=== PATIENT | male | born 1935 | race Caucasian/White ===

== ENCOUNTER → 2016-04-04 | Outpatient (REF) | payer MEDICARE, OTHER ==
[~2016-04-04] MED LIST: ACET50TAOT PO; CARV6.25 PO; CICL0.776 EX; CIPR500T89 PO; CUTI0.05 EX; DIGO0.25 PO; FINA5TAB2 PO; LEVA500T OR; LISI10TA4 PO; METO-207 PO; MOME50SP; PERC5TAB6 PO; TAMS0.4C2 PO; TYLENOL #3 OR; VERA27.5; XARE20TA PO; flecainide PO
[2016-04-04 17:35] LABS: ALBUMIN 3.5 GM/DL (3.2-5.2); ALBUMIN/GLOBULIN RATIO 1.13 (1.00-1.93); ALKALINE PHOSPHATASE 56 U/L (45-117); ALT/SGPT 23 U/L (12-78); ANION GAP 6 MEQ/L (8-16); AST/SGOT 17 U/L (15-37); BILIRUBIN,TOTAL 0.6 MG/DL (0.2-1.0); BLOOD UREA NITROGEN 19 MG/DL (7-18); CALCIUM LEVEL 8.5 MG/DL (8.8-10.2); CARBON DIOXIDE LEVEL 28 MEQ/L (21-32); CHLORIDE LEVEL 107 MEQ/L (98-107); CREATININE FOR GFR 0.88 MG/DL (0.70-1.30); GLOMERULAR FILTRATION RATE > 60.0 (>35); GLUCOSE, FASTING 89 MG/DL (83-110); POTASSIUM SERUM 4.6 MEQ/L (3.5-5.1); SODIUM LEVEL 141 MEQ/L (136-145); TOTAL PROTEIN 6.6 GM/DL (6.4-8.2)
[2016-04-04 17:46] LABS: MEAN CORPUSCULAR HEMOGLOBIN 30.6 pg (27.0-33.0); MEAN CORPUSCULAR HGB CONC 33.5 g/dl (32.0-36.5); MEAN CORPUSCULAR VOLUME 91.3 fl (80.0-96.0); RED CELL DISTRIBUTION WIDTH 13.7 % (11.5-14.5); WHITE BLOOD COUNT 6.2 K/mm3 (4.0-10.0)
== END ==
LOC: M SFHCCAPE 09:42
PROVIDERS: ATTEND Internal Medicine
DX: I48.0 Paroxysmal atrial fibrillation (principal); R03.0 Elevated blood-pressure reading, without diagnosis of hypertension

== ENCOUNTER → 2016-04-12 | Outpatient (CLI) | payer MEDICARE, OTHER ==
[~2016-04-12] VITALS: Ht 188 cm; Wt 101.2 kg
[~2016-04-12] MED LIST changes: +LIDOCAINE 2% INJ 100 MG/5 ML SDV (FOR ANES.) As Ordered ONE; +LR 1,000 ML IV SCH; +PROPOFOL 200 MG/20 ML VIAL As Ordered ONE
--- NOTE | 2016-04-12 08:21 | ROOR ---
Patient Name: Prem Malloy Procedure Date: 04/12/2016 7:34 AM Date of : 1935 Age: 80 Room: [facility] Gender: Male Note Status: Finalized Procedure: Colonoscopy Indications: High risk colon cancer surveillance: Personal history of non-advanced adenoma, Last colonoscopy: April 2010 Providers: Manuel Gamboa MD Referring MD: Gen Caldera MD Requesting Provider: Medicines: Monitored Anesthesia Care Complications: No immediate complications. Procedure: Pre-Anesthesia Assessment: - Prior to the procedure, a History and Physical was performed, and patient medications and allergies were reviewed. The patient is competent. The risks and benefits of the procedure and the sedation options and risks were discussed with the patient. All questions were answered and informed consent was obtained. Patient identification and proposed procedure were verified by the physician, the nurse and the anesthesiologist in the procedure room. Mental Status Examination: alert and oriented. Airway Examination: normal oropharyngeal airway and neck mobility. CV Examination: regular rate and rhythm. Prophylactic Antibiotics: The patient does not require prophylactic antibiotics. Prior Anticoagulants: The patient has taken Xarelto (rivaroxaban), last dose was 4 days prior to procedure. ASA Grade Assessment: II - A patient with mild systemic disease. After reviewing the risks and benefits, the patient was deemed in satisfactory condition to undergo the procedure. The anesthesia plan was to use monitored anesthesia care (MAC). Immediately prior to administration of medications, the patient was re-assessed for adequacy to receive sedatives. The heart rate, respiratory rate, oxygen saturations, blood pressure, adequacy of pulmonary ventilation, and response to care were monitored throughout the procedure. The physical status of the patient was re-assessed after the procedure. The Colonoscope was introduced through the anus and advanced to the cecum, identified by appendiceal orifice and ileocecal valve. The colonoscopy was performed without difficulty. The patient tolerated the procedure well. The quality of the bowel preparation was excellent. Findings: The perianal and digital rectal examinations were normal. Medium-mouthed diverticula were found in the entire colon. A 3 mm polyp was found in the cecum. The polyp was sessile. The polyp was removed with a jumbo cold forceps. Resection and retrieval were complete. A 3 mm polyp was found in the hepatic flexure. The polyp was sessile. The polyp was removed with a jumbo cold forceps. Resection and retrieval were complete. Impression: - Diverticulosis in the entire examined colon. - One 3 mm polyp in the cecum, removed with a jumbo cold forceps. Resected and retrieved. - One 3 mm polyp at the hepatic flexure, removed with a jumbo cold forceps. Resected and retrieved. Recommendation: - Await pathology results. - Telephone endoscopist for pathology results in 1 week. Manuel Gamboa MD 04/12/2016 8:21:37 AM Number of Addenda: 0 Note Initiated On: 04/12/2016 7:34 AM Estimated Blood Loss: Estimated blood loss was minimal.
[2016-04-12 08:38] VITALS: BP 138/64
== END ==
LOC: M OPP 06:54
PROVIDERS: ATTEND Surgery
DX: Z12.11 Encounter for screening for malignant neoplasm of colon (principal); Z86.010 Personal history of colon polyps; D12.0 Benign neoplasm of cecum; D12.3 Benign neoplasm of transverse colon; K57.30 Diverticulosis of large intestine without perforation or abscess without bleeding; I48.91 Unspecified atrial fibrillation; M19.90 Unspecified osteoarthritis, unspecified site; N40.0 Benign prostatic hyperplasia without lower urinary tract symptoms; Z95.0 Presence of cardiac pacemaker; Z87.891 Personal history of nicotine dependence; Z96.643 Presence of artificial hip joint, bilateral; Z79.02 Long term (current) use of antithrombotics/antiplatelets; Z79.899 Other long term (current) drug therapy

== ENCOUNTER → 2016-06-10 | Outpatient (REF) | payer MEDICARE, OTHER ==
[~2016-06-10] MED LIST changes: -LIDOCAINE 2% INJ 100 MG/5 ML SDV (FOR ANES.) As Ordered ONE; -LR 1,000 ML IV SCH; -PROPOFOL 200 MG/20 ML VIAL As Ordered ONE
[2016-06-10 18:19] LABS: ALBUMIN 3.6 GM/DL (3.2-5.2); ALBUMIN/GLOBULIN RATIO 1.13 (1.00-1.93); ALKALINE PHOSPHATASE 52 U/L (45-117); ALT/SGPT 28 U/L (12-78); ANION GAP 7 MEQ/L (8-16); AST/SGOT 18 U/L (15-37); BILIRUBIN,TOTAL 0.4 MG/DL (0.2-1.0); BLOOD UREA NITROGEN 21 MG/DL (7-18); CARBON DIOXIDE LEVEL 28 MEQ/L (21-32); CHLORIDE LEVEL 106 MEQ/L (98-107); CREATININE FOR GFR 0.85 MG/DL (0.70-1.30); FOLATE 7.8 NG/ML; GLOMERULAR FILTRATION RATE > 60.0 (>35); GLUCOSE, FASTING 83 MG/DL (83-110); POTASSIUM SERUM 4.3 MEQ/L (3.5-5.1); SODIUM LEVEL 141 MEQ/L (136-145); TOTAL PROTEIN 6.8 GM/DL (6.4-8.2); VITAMIN B12 LEVEL 227 PG/ML
== END ==
LOC: M SFHCPLAZ 16:25
PROVIDERS: ATTEND Internal Medicine
DX: R53.82 Chronic fatigue, unspecified (principal); F09 Unspecified mental disorder due to known physiological condition

== ENCOUNTER → 2016-07-08 | Outpatient (CLI) | payer MEDICARE, OTHER ==
[~2016-07-08] MED LIST changes: +ISOVUE-370 76% 100ML VIAL (Q9967) As Ordered ONE
--- NOTE | 2016-07-08 15:54 | REP ---
CT HEAD WITHOUT AND WITH CONTRAST: HISTORY: Cognitive dysfunction. CONTRAST: Isovue-370, 75 mL. COMPARISON: 02/17/2010. Areas of decreased attenuation are present in the basal ganglia. These represent old lacunar infarctions. Areas of decreased attenuation are present in the periventricular white matter. This represents small vessel ischemic disease. There is no intraparenchymal hemorrhage, mass or midline shift. There is no abnormal enhancement. The ventricular system and cortical sulci are dilated consistent with minimal volume loss. There is no extracerebral collection. The visualized sinuses are clear. IMPRESSION: 1. Old bilateral basal ganglia lacunar infarctions. 2. Small vessel ischemic disease. 3. Minimal volume loss. Signed by Ricardo Watson MD 07/08/2016 04:25 P
== END ==
LOC: M RAD 15:06
PROVIDERS: ATTEND Internal Medicine
DX: F09 Unspecified mental disorder due to known physiological condition (principal); I73.9 Peripheral vascular disease, unspecified; G93.9 Disorder of brain, unspecified
CPT/HCPCS: 70470; Q9967

== ENCOUNTER → 2017-05-29 | Outpatient (REF) | payer MEDICARE, OTHER ==
[2017-05-29 13:23] LABS: HEMATOCRIT 42.9 % (42.0-52.0); HEMOGLOBIN 14.2 g/dl (13.5-17.5); MEAN CORPUSCULAR HEMOGLOBIN 30.5 pg (27.0-33.0); MEAN CORPUSCULAR HGB CONC 33.1 g/dl (32.0-36.5); MEAN CORPUSCULAR VOLUME 92.1 fl (80.0-96.0); PLATELET COUNT, AUTOMATED 259 10^3/uL (150-450); RED BLOOD COUNT 4.66 10^6/uL (4.30-6.10); RED CELL DISTRIBUTION WIDTH 13.1 % (11.5-14.5); WHITE BLOOD COUNT 5.6 10^3/uL (4.0-10.0)
[2017-05-29 13:52] LABS: ALBUMIN 3.6 GM/DL (3.2-5.2); ALBUMIN/GLOBULIN RATIO 1.06 (1.00-1.93); ALKALINE PHOSPHATASE 50 U/L (45-117); ALT/SGPT 53 U/L (12-78); ANION GAP 6 MEQ/L (8-16); AST/SGOT 36 U/L (7-37); BILIRUBIN,TOTAL 0.6 MG/DL (0.2-1.0); BLOOD UREA NITROGEN 19 MG/DL (7-18); CALCIUM LEVEL 8.7 MG/DL (8.8-10.2); CARBON DIOXIDE LEVEL 26 MEQ/L (21-32); CHLORIDE LEVEL 110 MEQ/L (98-107); CHOLESTEROL LEVEL 171 MG/DL (<200); CHOLESTEROL RISK RATIO 4.621 (<5); CREATININE FOR GFR 0.93 MG/DL (0.70-1.30); GLOMERULAR FILTRATION RATE > 60.0 (>35); GLUCOSE, FASTING 95 MG/DL (70-100); HDL CHOLESTEROL 37 MG/DL (>40); LDL CHOLESTEROL 98.8 MG/DL (<100); NON-HDL-C 134 MG/DL; POTASSIUM SERUM 4.7 MEQ/L (3.5-5.1); SODIUM LEVEL 142 MEQ/L (136-145); TRIGLYCERIDES LEVEL 176 MG/DL (<150)
[2017-05-29 14:03] LABS: VITAMIN B12 LEVEL 591 PG/ML (247-911)
== END ==
LOC: M SFHCPLAZ 10:13
DX: Z51.81 Encounter for therapeutic drug level monitoring (principal); Z79.01 Long term (current) use of anticoagulants; R03.0 Elevated blood-pressure reading, without diagnosis of hypertension; E53.8 Deficiency of other specified B group vitamins; I10 Essential (primary) hypertension
CPT/HCPCS: 82607

== ENCOUNTER → 2017-10-23 | Outpatient (REF) | payer MEDICARE, OTHER ==
[2017-10-23 22:46] LABS: ALBUMIN 3.4 GM/DL (3.2-5.2); ANION GAP 10 MEQ/L (8-16); BLOOD UREA NITROGEN 21 MG/DL (7-18); CALCIUM LEVEL 8.7 MG/DL (8.8-10.2); CARBON DIOXIDE LEVEL 26 MEQ/L (21-32); CHLORIDE LEVEL 108 MEQ/L (98-107); CREATININE FOR GFR 1.17 MG/DL (0.70-1.30); GLOMERULAR FILTRATION RATE > 60.0 (>35); GLUCOSE, FASTING 89 MG/DL (70-100); MAGNESIUM LEVEL 2.2 MG/DL (1.8-2.4); PHOSPHORUS LEVEL 4.1 MG/DL (2.5-4.9); POTASSIUM SERUM 3.8 MEQ/L (3.5-5.1); SODIUM LEVEL 144 MEQ/L (136-145)
[2017-10-26 00:07] LABS: FLECAINIDE LEVEL 0.47 ug/mL (0.20-1.00)
== END ==
LOC: M LAB REF 17:45
DX: I48.0 Paroxysmal atrial fibrillation (principal); I50.30 Unspecified diastolic (congestive) heart failure; R94.31 Abnormal electrocardiogram [ECG] [EKG]; Z79.899 Other long term (current) drug therapy
CPT/HCPCS: 83735

== ENCOUNTER → 2017-11-22 | Outpatient (REF) | payer MEDICARE, OTHER ==
[2017-11-22 17:30] LABS: ALBUMIN 3.4 GM/DL (3.2-5.2); ALKALINE PHOSPHATASE 51 U/L (45-117); ALT/SGPT 24 U/L (12-78); ANION GAP 7 MEQ/L (8-16); AST/SGOT 16 U/L (7-37); BILIRUBIN,TOTAL 0.6 MG/DL (0.2-1.0); BLOOD UREA NITROGEN 21 MG/DL (7-18); CALCIUM LEVEL 8.2 MG/DL (8.8-10.2); CARBON DIOXIDE LEVEL 28 MEQ/L (21-32); CHLORIDE LEVEL 107 MEQ/L (98-107); CREATININE FOR GFR 1.18 MG/DL (0.70-1.30); GLOMERULAR FILTRATION RATE > 60.0 (>35); GLUCOSE, FASTING 68 MG/DL (70-100); MAGNESIUM LEVEL 2.1 MG/DL (1.8-2.4); POTASSIUM SERUM 4.2 MEQ/L (3.5-5.1); SODIUM LEVEL 142 MEQ/L (136-145); TOTAL PROTEIN 6.5 GM/DL (6.4-8.2)
== END ==
LOC: M SFHCCAPE 08:31
DX: R03.0 Elevated blood-pressure reading, without diagnosis of hypertension (principal); I48.0 Paroxysmal atrial fibrillation
CPT/HCPCS: 83735

== ENCOUNTER → 2017-11-22 | Outpatient (REF) | payer MEDICARE, OTHER ==
[2017-11-22 17:22] LABS: ALBUMIN 3.6 GM/DL (3.2-5.2); ANION GAP 7 MEQ/L (8-16); BLOOD UREA NITROGEN 24 MG/DL (7-18); CALCIUM LEVEL 8.5 MG/DL (8.8-10.2); CARBON DIOXIDE LEVEL 28 MEQ/L (21-32); CHLORIDE LEVEL 108 MEQ/L (98-107); CREATININE FOR GFR 1.17 MG/DL (0.70-1.30); GLOMERULAR FILTRATION RATE > 60.0 (>35); GLUCOSE, FASTING 72 MG/DL (70-100); PHOSPHORUS LEVEL 3.4 MG/DL (2.5-4.9); POTASSIUM SERUM 4.1 MEQ/L (3.5-5.1); SODIUM LEVEL 143 MEQ/L (136-145)
== END ==
LOC: M LABDRWCV 16:20
DX: I48.0 Paroxysmal atrial fibrillation (principal)
CPT/HCPCS: 80069; 83735

== ENCOUNTER 2018-03-11 10:47 | Emergency (ER) | payer MEDICARE, OTHER ==
[~2018-03-11] VITALS: Ht 188 cm; Wt 100.9 kg
[~2018-03-11 10:47] MED LIST changes: +ACET500T15 PO; -ACET50TAOT PO; +CIPR-249 PO; -CIPR500T89 PO; -ISOVUE-370 76% 100ML VIAL (Q9967) As Ordered ONE; -METO-207 PO; +METO1TAB7 PO; +PERC5TAB12 PO; -PERC5TAB6 PO
[2018-03-11] MEDS ORDERED: AMIO200T (10:56)
[2018-03-11] MEDS ORDERED: B-12100020 (10:56)
[2018-03-11] MEDS ORDERED: CARV3.12 (10:56)
[2018-03-11] MEDS ORDERED: DIGO0.12 (10:56)
[2018-03-11 11:26] LABS: BASO % 0.6 % (0.0-1.0); EOS # 0.1 10^3/uL (0.0-0.50); EOS % 1.6 % (0.0-3.0); HEMATOCRIT 44.3 % (42.0-52.0); HEMOGLOBIN 14.2 g/dl (13.5-17.5); LYMPH # 0.7 10^3/uL (1.5-4.5); MEAN CORPUSCULAR HEMOGLOBIN 30.5 pg (27.0-33.0); MEAN CORPUSCULAR HGB CONC 32.1 g/dl (32.0-36.5); MEAN CORPUSCULAR VOLUME 95.3 fl (80.0-96.0); MONO # 0.7 10^3/uL (0.0-0.8); MONO % 11.2 % (0.0-5.0); NEUTROPHILS # 4.7 10^3/uL (1.8-7.7); PLATELET COUNT, AUTOMATED 266 10^3/uL (150-450); RED BLOOD COUNT 4.65 10^6/uL (4.30-6.10); WHITE BLOOD COUNT 6.3 10^3/uL (4.0-10.0)
--- NOTE | 2018-03-11 11:45 | REP ---
Clinical: Chest pain . Comparison: 10/23/2015 . Findings: The mediastinum and cardiac silhouette are stable and within normal limits for portable technique. Dual lead pacemaker in satisfactory stable position. The lung huffman demonstrate chronic-appearing interstitial changes primarily involving the right hemithorax and left base. No focal consolidation, effusion, or pneumothorax. Skeletal structures are intact. Impression: Chronic-appearing changes as noted above. No acute cardiopulmonary process appreciated. Electronically Signed by Walt Kilgore MD 03/11/2018 11:36 A
[2018-03-11 12:19] LABS: CALCIUM LEVEL 8.6 MG/DL (8.8-10.2); CREATININE FOR GFR 1.52 MG/DL (0.70-1.30); DIGOXIN LEVEL 0.7 NG/ML (0.5-2.0); GLOMERULAR FILTRATION RATE 46.7 (>35); MB/CK RELATIVE INDEX 2.61 (< OR =4); POTASSIUM SERUM 4.1 MEQ/L (3.5-5.1); TROPONIN I 0.92 NG/ML (< 0.10)
[2018-03-11] MEDS ORDERED: NS 500 ML IV ONE (12:45)
[2018-03-11 14:28] LABS: MB/CK RELATIVE INDEX 2.64 (< OR =4); TROPONIN I 0.7 NG/ML (< 0.10)
[2018-03-11 15:19] VITALS: BP 136/62
--- NOTE | 2018-03-11 18:19 | ECGEPIP ---
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
== END 2018-03-11 15:20 | disposition home or self-care (01) ==
LOC: EDBD 10:47 → M ED 10:47
DX: R55 Syncope and collapse (principal); I48.91 Unspecified atrial fibrillation

== ENCOUNTER → 2018-05-28 | Outpatient (CLI) | payer MEDICARE, OTHER ==
[~2018-05-28] MED LIST changes: +AMIO200T; +B-12100020; +CARV3.12; +DIGO0.12
[2018-05-28 12:53] LABS: HEMATOCRIT 45.3 % (42.0-52.0); HEMOGLOBIN 14.6 g/dl (13.5-17.5); MEAN CORPUSCULAR HEMOGLOBIN 29.6 pg (27.0-33.0); MEAN CORPUSCULAR HGB CONC 32.2 g/dl (32.0-36.5); MEAN CORPUSCULAR VOLUME 91.9 fl (80.0-96.0); PLATELET COUNT, AUTOMATED 183 10^3/uL (150-450); RED BLOOD COUNT 4.93 10^6/uL (4.30-6.10); WHITE BLOOD COUNT 2.6 10^3/uL (4.0-10.0)
[2018-05-28 13:22] LABS: ALBUMIN 3.2 GM/DL (3.2-5.2); ALT/SGPT 360 U/L (12-78); BILIRUBIN,TOTAL 0.5 MG/DL (0.2-1.0); BLOOD UREA NITROGEN 18 MG/DL (7-18); CARBON DIOXIDE LEVEL 29 MEQ/L (21-32); CHLORIDE LEVEL 105 MEQ/L (98-107); CHOLESTEROL LEVEL 121 MG/DL (<200); CHOLESTEROL RISK RATIO 3.361 (<5); CREATININE FOR GFR 1.14 MG/DL (0.70-1.30); GLOMERULAR FILTRATION RATE > 60.0 (>35); GLUCOSE, FASTING 63 MG/DL (70-100); HDL CHOLESTEROL 36 MG/DL (>40); LDL CHOLESTEROL 67 MG/DL (<100); NON-HDL-C 85 MG/DL; POTASSIUM SERUM 4.3 MEQ/L (3.5-5.1); SODIUM LEVEL 139 MEQ/L (136-145); TOTAL PROTEIN 5.9 GM/DL (6.4-8.2); TRIGLYCERIDES LEVEL 92 MG/DL (<150)
== END ==
LOC: M WUC 10:22
PROVIDERS: ATTEND Internal Medicine
DX: R53.82 Chronic fatigue, unspecified (principal); I48.0 Paroxysmal atrial fibrillation

== ENCOUNTER → 2018-05-30 | Outpatient (CLI) | payer MEDICARE, OTHER ==
--- NOTE | 2018-05-30 07:51 | REP ---
Abdominal right upper quadrant ultrasound for elevated liver function tests: There is a negative Abel's sign. There are gallbladder calculi. There is biliary sludge in the gallbladder. There is no gallbladder wall thickening or pericholecystic fluid. There is no intrahepatic or extrahepatic biliary duct dilatation. The common biliary duct measures 6.5 mm in diameter. There is mild hepato steatosis. There is a hyperechoic nodule in the right lobe of the liver measuring 8.4 x 8.2 x 7.9 mm, compatible with hemangioma. The visualized areas of the pancreas are unremarkable. The right kidney measures 12.2 of 5.5 of 5.9 cm and is normal size. There is no right renal calculus. There is no hydronephrosis. There are no right renal solid or cystic masses. There is no abdominal right upper quadrant ascites. Impression: Mild hepato steatosis. 8.4 mm hyperechoic hepatic right lobe nodule compatible with hemangioma. Cholelithiasis without evidence of acute cholecystitis. Electronically Signed by Kimo Shaikh MD 05/30/2018 07:43 A
== END ==
LOC: M RAD 06:47
PROVIDERS: ATTEND Internal Medicine
DX: R94.5 Abnormal results of liver function studies (principal)
CPT/HCPCS: 76705; G0463

== ENCOUNTER → 2018-10-04 | Outpatient (CLI) | payer MEDICARE, OTHER ==
--- NOTE | 2018-10-04 15:57 | REP ---
REASON FOR EXAM: Pain with distal bump. FINDINGS: No acute fracture or destructive osseous lesion. If a soft tissue mass is of clinical concern, then I would suggest followup with CT. Electronically Signed by Junaid Su DO 10/04/2018 04:29 P
--- NOTE | 2018-10-04 16:01 | REP ---
HISTORY: Pain. There is mild tricompartmental marginal osteophytosis with medial compartmental narrowing and mild subchondral sclerosis. There is no acute fracture. There is patellofemoral joint space narrowing as well. IMPRESSION: Chronic changes. Electronically Signed by Junaid Su DO 10/04/2018 04:30 P
== END ==
LOC: M WUC 13:54
PROVIDERS: ATTEND Nurse Practitioner Family
DX: M25.761 Osteophyte, right knee (principal); M17.11 Unilateral primary osteoarthritis, right knee

== ENCOUNTER → 2018-10-09 | Outpatient (CLI) | payer MEDICARE, OTHER ==
--- NOTE | 2018-10-09 15:25 | REP ---
Right lower extremity Duplex Doppler venous ultrasound: Real time compression and duplex Doppler interrogation of the right lower extremity deep venous system is performed. The right common femoral, superficial femoral and popliteal veins are fully compressible with transducer pressure and demonstrate normal spontaneous and phasic flow, without evidence of deep venous thrombosis. Impression: No evidence of deep venous thrombosis of the right lower extremity femoral popliteal venous system. Electronically Signed by Kimo Arreola MD 10/09/2018 03:16 P
== END ==
LOC: M RAD 14:08
PROVIDERS: ATTEND Physician Assistant
DX: Z86.718 Personal history of other venous thrombosis and embolism (principal)

== ENCOUNTER → 2018-10-11 | Outpatient (REF) | payer MEDICARE, OTHER ==
[2018-10-11 17:33] LABS: BASO % 0.9 % (0.0-1.0); EOS # 0.1 10^3/uL (0.0-0.50); EOS % 3.2 % (0.0-3.0); HEMATOCRIT 44.4 % (42.0-52.0); HEMOGLOBIN 14.8 g/dl (13.5-17.5); LYMPH # 0.9 10^3/uL (1.5-4.5); LYMPH % 21.8 % (24.0-44.0); MEAN CORPUSCULAR HEMOGLOBIN 31.6 pg (27.0-33.0); MEAN CORPUSCULAR HGB CONC 33.3 g/dl (32.0-36.5); MEAN CORPUSCULAR VOLUME 94.9 fl (80.0-96.0); MONO # 0.8 10^3/uL (0.0-0.8); MONO % 17.6 % (0.0-5.0); NEUTROPHILS # 2.4 10^3/uL (1.8-7.7); NEUTROPHILS % 56.3 % (36.0-66.0); PLATELET COUNT, AUTOMATED 210 10^3/uL (150-450); RED BLOOD COUNT 4.68 10^6/uL (4.30-6.10); WHITE BLOOD COUNT 4.3 10^3/uL (4.0-10.0)
[2018-10-11 17:53] LABS: BLOOD UREA NITROGEN 17 MG/DL (7-18); CALCIUM LEVEL 8.4 MG/DL (8.8-10.2); CARBON DIOXIDE LEVEL 28 MEQ/L (21-32); CHLORIDE LEVEL 107 MEQ/L (98-107); CREATININE FOR GFR 1.03 MG/DL (0.70-1.30); GLOMERULAR FILTRATION RATE > 60.0 (>35); GLUCOSE, FASTING 96 MG/DL (70-100); POTASSIUM SERUM 4.4 MEQ/L (3.5-5.1); SODIUM LEVEL 140 MEQ/L (136-145)
== END ==
LOC: M LABDRWCV 16:16
PROVIDERS: ATTEND Physician Assistant
DX: L03.115 Cellulitis of right lower limb (principal); I11.9 Hypertensive heart disease without heart failure

== ENCOUNTER → 2018-11-07 | Outpatient (REF) | payer MEDICARE, OTHER | LOC: M SFHCPLAZ 12:14 | PROVIDERS: ATTEND Internal Medicine | DX: Z86.010 Personal history of colon polyps (principal) ==

== ENCOUNTER → 2018-11-27 | Outpatient (REF) | payer MEDICARE, OTHER ==
[2018-11-27 16:34] LABS: ALBUMIN 3.3 GM/DL (3.2-5.2); BILIRUBIN,DIRECT 0.2 MG/DL (0.0-0.2); BILIRUBIN,TOTAL 0.8 MG/DL (0.2-1.0); TOTAL PROTEIN 6.4 GM/DL (6.4-8.2)
== END ==
LOC: M SFHCPLAZ 09:37
PROVIDERS: ATTEND Internal Medicine
DX: Z86.010 Personal history of colon polyps (principal)

== ENCOUNTER → 2019-02-01 | Outpatient (CLI) | payer MEDICARE ==
[~2019-02-01] MED LIST changes: -DIGO0.12; +DIGO0.123
[2019-02-01 11:59] LABS: HEMATOCRIT 48.5 % (42.0-52.0); HEMOGLOBIN 15.8 g/dl (13.5-17.5); MEAN CORPUSCULAR HEMOGLOBIN 31.4 pg (27.0-33.0); MEAN CORPUSCULAR HGB CONC 32.6 g/dl (32.0-36.5); MEAN CORPUSCULAR VOLUME 96.4 fl (80.0-96.0); PLATELET COUNT, AUTOMATED 217 10^3/uL (150-450); RED BLOOD COUNT 5.03 10^6/uL (4.30-6.10); WHITE BLOOD COUNT 5.7 10^3/uL (4.0-10.0)
[2019-02-01 12:08] LABS: BLOOD UREA NITROGEN 21 MG/DL (7-18); CARBON DIOXIDE LEVEL 28 MEQ/L (21-32); CHLORIDE LEVEL 107 MEQ/L (98-107); CREATININE FOR GFR 1.05 MG/DL (0.70-1.30); GLOMERULAR FILTRATION RATE > 60.0 (>35); GLUCOSE, FASTING 85 MG/DL (70-100); POTASSIUM SERUM 4.4 MEQ/L (3.5-5.1); SODIUM LEVEL 142 MEQ/L (136-145)
== END ==
LOC: M WUC 09:37
PROVIDERS: ATTEND Physician Assistant
DX: I48.0 Paroxysmal atrial fibrillation (principal); I11.9 Hypertensive heart disease without heart failure

== ENCOUNTER → 2019-07-18 | Outpatient (CLI) | payer MEDICARE ==
[~2019-07-18] MED LIST changes: +CICL0.7733 EX; -CICL0.776 EX
[2019-07-18 13:14] LABS: HEMATOCRIT 46.4 % (42.0-52.0); HEMOGLOBIN 15.4 g/dl (13.5-17.5); MEAN CORPUSCULAR HEMOGLOBIN 31.5 pg (27.0-33.0); MEAN CORPUSCULAR HGB CONC 33.2 g/dl (32.0-36.5); MEAN CORPUSCULAR VOLUME 94.9 fl (80.0-96.0); PLATELET COUNT, AUTOMATED 227 10^3/uL (150-450); RED BLOOD COUNT 4.89 10^6/uL (4.30-6.10); WHITE BLOOD COUNT 5.7 10^3/uL (4.0-10.0)
[2019-07-18 13:43] LABS: ALBUMIN 3.5 GM/DL (3.2-5.2); ALT/SGPT 27 U/L (12-78); BILIRUBIN,TOTAL 0.8 MG/DL (0.2-1.0); BLOOD UREA NITROGEN 19 MG/DL (7-18); CALCIUM LEVEL 8.7 MG/DL (8.8-10.2); CARBON DIOXIDE LEVEL 30 MEQ/L (21-32); CHLORIDE LEVEL 106 MEQ/L (98-107); CHOLESTEROL LEVEL 161 MG/DL (<200); CHOLESTEROL RISK RATIO 2.875 (<5); CREATININE FOR GFR 0.95 MG/DL (0.70-1.30); GLOMERULAR FILTRATION RATE > 60.0 (>35); GLUCOSE, FASTING 91 MG/DL (70-100); HDL CHOLESTEROL 56 MG/DL (>40); LDL CHOLESTEROL 88 MG/DL (<100); NON-HDL-C 105 MG/DL; POTASSIUM SERUM 4.7 MEQ/L (3.5-5.1); SODIUM LEVEL 141 MEQ/L (136-145); TOTAL PROTEIN 6.7 GM/DL (6.4-8.2); TRIGLYCERIDES LEVEL 84 MG/DL (<150)
[2019-07-18 14:07] LABS: VITAMIN B12 LEVEL 1042 PG/ML (247-911)
== END ==
LOC: M WUC 09:32
PROVIDERS: ATTEND Internal Medicine
DX: Z51.81 Encounter for therapeutic drug level monitoring (principal); Z79.01 Long term (current) use of anticoagulants; I48.0 Paroxysmal atrial fibrillation; E53.8 Deficiency of other specified B group vitamins; Z86.010 Personal history of colon polyps; R53.82 Chronic fatigue, unspecified; F09 Unspecified mental disorder due to known physiological condition; R03.0 Elevated blood-pressure reading, without diagnosis of hypertension

== ENCOUNTER → 2020-03-16 | Outpatient (REF) | payer MEDICARE, OTHER ==
[~2020-03-16] MED LIST changes: -AMIO200T; +AMIO200T3; +LISI10TA22 PO; -LISI10TA4 PO
[2020-03-16 13:55] LABS: HEMATOCRIT 45.1 % (42.0-52.0); HEMOGLOBIN 14.5 g/dl (13.5-17.5); MEAN CORPUSCULAR HEMOGLOBIN 30.8 pg (27.0-33.0); MEAN CORPUSCULAR HGB CONC 32.2 g/dl (32.0-36.5); MEAN CORPUSCULAR VOLUME 95.8 fl (80.0-96.0); PLATELET COUNT, AUTOMATED 306 10^3/uL (150-450); RED BLOOD COUNT 4.71 10^6/uL (4.30-6.10); WHITE BLOOD COUNT 7.6 10^3/uL (4.0-10.0)
[2020-03-16 14:24] LABS: ALBUMIN 3.5 GM/DL (3.2-5.2); ALT/SGPT 19 U/L (12-78); BILIRUBIN,TOTAL 0.5 MG/DL (0.2-1.0); BLOOD UREA NITROGEN 21 MG/DL (7-18); CALCIUM LEVEL 9.2 MG/DL (8.8-10.2); CARBON DIOXIDE LEVEL 30 MEQ/L (21-32); CHLORIDE LEVEL 106 MEQ/L (98-107); CREATININE FOR GFR 0.99 MG/DL (0.70-1.30); GLOMERULAR FILTRATION RATE > 60.0 (>35); GLUCOSE, FASTING 81 MG/DL (70-100); MAGNESIUM LEVEL 2.3 MG/DL (1.8-2.4); SODIUM LEVEL 141 MEQ/L (136-145)
== END ==
LOC: M SFHCPLAZ 10:19
PROVIDERS: ATTEND Internal Medicine
DX: I48.0 Paroxysmal atrial fibrillation (principal); I25.84 Coronary atherosclerosis due to calcified coronary lesion; Z79.01 Long term (current) use of anticoagulants
CPT/HCPCS: 36415; 80053; 83735; 85027; G0463

== ENCOUNTER → 2020-08-05 | Outpatient (REF) | LOC: M LAB 10:54 | PROVIDERS: ATTEND Nurse Practitioner Adult Health | DX: Z00.00 Encounter for general adult medical examination without abnormal findings (principal) ==

== ENCOUNTER → 2020-08-21 | Outpatient (CLI) | payer MEDICARE, OTHER ==
--- NOTE | 2020-08-21 14:43 | REP ---
INDICATION: FACIAL ABSCESS. COMPARISON: Comparison soft tissue neck CT images are from May 25, 2015. Comparison maxillofacial CT study February 17, 2010.. TECHNIQUE: Helical scanning is acquired and 2 mm axial images re-formatted. Coronal MPR images are generated and reviewed. FINDINGS: Digital overnight caregiver views are unremarkable. Opaque BB is are affixed to the skin at the superior inferior margin of the area of interest. There is a mucous retention cyst in the floor of the right maxillary sinus which was present previously. The maxillary sinuses are otherwise clear. Mastoid aeration is normal. There is no evidence of frontal, sphenoid, or ethmoid sinus opacification. The patient appears to be status post bilateral uncinectomy. 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 A prior study showed a nasal polyps. There is 1 remaining nasal polyp in the anterior nasal ethmoid recess to the right of midline measuring 2.0 x 1.0 x 1.7 cm. No intraorbital abnormality is seen. There is moderate generalized volume loss a in the visualized intracranial structures. There is a diffuse pattern of superficial edema and dermal thickening consistent with cellulitis in the left male are soft tissues extending down to the submandibular region. The left platysma is thickened to the level of the thyroid cartilages. There is no evidence of abscess, mass, or adenopathy. The soft tissue findings are suggestive of cellulitis. There is some dental amalgam related is scan artifact at the level of the teeth. Parotid and submandibular glands are normal and symmetric. There is mild vascular calcification. IMPRESSION: Diffuse superficial swelling of the left malar and cheek soft tissues with inflammatory thickening of the left platysma consistent with cellulitis pattern. Paranasal sinus and postoperative sinus changes as above. Sinus disease generally improved from February 2010 appearance. There is a 2.0 cm nasal polyp in the nasal ethmoid recess on the right. No abscess is visible. <Electronically signed by Taran Jaeger > 08/21/20 [id number]
== END ==
LOC: M RAD 14:06
PROVIDERS: ATTEND Otolaryngology
DX: K11.3 Abscess of salivary gland (principal)

== ENCOUNTER → 2020-08-28 | Outpatient (CLI) | payer MEDICARE, OTHER ==
--- NOTE | 2020-08-28 11:15 | REP ---
INDICATION: CORONARY ATHEROSCLEROSIS DUE TO CALCIFIED CORONARY LESION. COMPARISON: Multiple the latest 03/11/2018 a portable exam TECHNIQUE: PA and lateral FINDINGS: Cardiomediastinal silhouette is unchanged. The heart is not enlarged. The dual chamber bipolar pacemaker device is stable. The lung huffman are stable. No acute patchy parenchymal opacities or pleural effusions have developed. The osseous structures stable and intact. IMPRESSION: There is no acute cardiopulmonary disease. <Electronically signed by Junaid Su > 08/28/20 1111
[2020-08-28 13:43] LABS: ALBUMIN 3.3 GM/DL (3.2-5.2); ALT/SGPT 18 U/L (12-78); BILIRUBIN,TOTAL 0.6 MG/DL (0.2-1.0); BLOOD UREA NITROGEN 17 MG/DL (7-18); CARBON DIOXIDE LEVEL 29 MEQ/L (21-32); CHLORIDE LEVEL 107 MEQ/L (98-107); CHOLESTEROL LEVEL 146 MG/DL (<200); CHOLESTEROL RISK RATIO 3.173 (<5); CREATININE FOR GFR 0.93 MG/DL (0.70-1.30); GLOMERULAR FILTRATION RATE > 60.0 (>35); GLUCOSE, FASTING 86 MG/DL (70-100); HDL CHOLESTEROL 46 MG/DL (>40); LDL CHOLESTEROL 81 MG/DL (<100); NON-HDL-C 100 MG/DL; POTASSIUM SERUM 4.4 MEQ/L (3.5-5.1); SODIUM LEVEL 140 MEQ/L (136-145); TOTAL PROTEIN 6.6 GM/DL (6.4-8.2); TRIGLYCERIDES LEVEL 94 MG/DL (<150)
== END ==
LOC: M PLAIMG 10:38
PROVIDERS: ATTEND Internal Medicine
DX: R03.0 Elevated blood-pressure reading, without diagnosis of hypertension (principal); I25.84 Coronary atherosclerosis due to calcified coronary lesion; Z11.59 Encounter for screening for other viral diseases
CPT/HCPCS: 36415; 71046; 80053; 80061; G0472

== ENCOUNTER 2021-01-17 13:20 | Emergency (ER) | payer MEDICARE, OTHER ==
[~2021-01-17] VITALS: Ht 188 cm; Wt 109.1 kg
--- OUTSIDE RECORDS SUMMARY | 2021-01-17 13:28 | CCD ---
Author Author Uriel Matthew MD [facility] Organization Uriel Matthew MD [facility] Address [address] [place] [phone] Phone Care Team Providers Care Scaffold Erector Name Role Phone Uriel Slater O.D. Unavailable [phone] Vipul CANO, Uriel ENRIQUE Unavailable [phone] Verenice CANO, Gen PP [phone] Reason for Referral No Reason for Referral Recorded Problems Includes: Active, inactive, and resolved Problems All Visits Onset Date - Time Resolved Date - Time Provider Co ndition Status History of Nicotine Dependence 09/01/2017 - 12:00AM Uriel Matthew MD, FACS Active Retinopathy Hypertensive 09/01/2017 - 12:00AM Uriel Matthew MD, FACS Active Peripheral Retinal Degeneration - [place] 09/01/2017 - 12:0 0AM Uriel Matthew MD, FACS Active Posterior Capsule Opacification Eccentric Capsule Both Eyes 12/16/2016 - 12:00AM Uriel Matthew MD, FACS Active Benign Neoplasm Eyelid Including [place] 12/16/2016 - 12:00AM Uriel Recinos MD, FACS Active Oth benign neoplasm skin/ left eyelid, including canthus 017 - 12:00AM Uriel Matthew MD, FACS Active Essential Hypertension 12/16/2016 - 12:00AM Uriel Miles MD, FACS Active Retinopathy Hypertensive Both Eyes 12/16/2016 - 12:00AM Uriel Matthew MD, FACS Active Pseudophakic - Both Eyes 12/16/2016 - 12:00AM Uriel Matthew MD, FACS Active Peripheral Retinal Degeneration [place] Right Eye 7 - 12:00AM Uriel Matthew MD, FACS Active Dry Eye Syndrome Both Eyes 12/16/2016 - 12:00AM Uriel Matthew MD, FACS Active Vitreous Disorders Degeneration 12/16/2016 - 12:00AM Uriel Matthew MD, FACS Active Plan of Treatment No Plan of Treatment Recorded Assessments Includes: Assessments for all patient encounters Findings Encounter Date Essential hypertension 1 Year Follow-Up with Uriel Recinos MD, FACS 09/03/2018 History of nicotine dependence 1 Year Follow-Up with Giselle Matthew MD, FACS 09/03/2018 Hypertensive retinopathy 1 Year Follow-Up with Uriel Faria MD, FACS 09/03/2018 [place] 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 1 Year Follow-Up with Uriel Matthew MD, FACS 09/03/2018 Posterior capsule opacification of eccentric capsule i n both eyes 1 Year Follow- Up with Uriel Matthew MD, FACS 09/03/2018 Pseudophakia in both eyes 1 Year Follow-Up with Uriel Hyde MD, FACS 09/03/2018 Essential hypertension 8 Month Follow-Up with Uriel Hdez MD, FACS 09/01/2017 History of nicotine dependence 8 Month Follow-Up with Uriel Matthew MD, FACS 09/01/2017 Hypertensive retinopathy 8 Month Follow-Up with Uriel Hyde MD, FACS 09/01/2017 [place] peripheral retinal degeneration 8 Month F ollow-Up with Uriel Matthew MD, FACS 09/01/2017 Posterior capsule opacification of eccentric capsule i n both eyes 8 Month Follow-Up with Uriel Matthew MD, FACS 09/01/2017 Pseudophakia 8 Month Follow-Up with Uriel ramos MD, FACS 09/01/2017 Benign neoplasm of eyelid, including canthus NEW PATIE NT WITH REFERRAL with Uriel Matthew MD, FACS 12/16/2016 Dry eye syndrome of both eyes NEW PATIENT WITH REFERRA L with Uriel Matthew MD, FACS 12/16/2016 Essential hypertension NEW PATIENT WITH REFERRAL wi Uriel Matthew MD, FACS 12/16/2016 Hypertensive retinopathy of both eyes NEW PATIENT WITH REFERRAL with Uriel Matthew MD, FACS 12/16/2016 [place] 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 NEW PATIENT WITH REFERRAL with Uriel Matthew MD, FACS 12/16/2016 Posterior capsule opacification of eccentric capsule i n both eyes NEW PATIENT WITH REFERRAL with Uriel Matthew MD, FACS 12/16/2016 Pseudophakia in both eyes NEW PATIENT WITH REFERRAL wi Uriel Matthew MD, FACS 12/16/2016 Vitreous degeneration NEW PATIENT WITH REFERRAL [facility] Uriel Matthew MD, FACS 12/16/2016 Instructions Instructions not supported for this document typeNo Instructions Recorded Medical Equipment - Implanted Devices Includes: Current and historical DevicesNo Medical Equipment Recorded Medications Includes: Current and historical Medications Current Medications (continue as prescribed) Carvedilol 6.25MG Oral Tablet 12/16/2016 Provider: Diagnosis: Digoxin 250MCG Oral Tablet 12/16/2016 Provider: Diagnosis: Xarelto 20MG Oral Tablet 12/16/2016 Provider: Diagnosis: Finasteride 5MG Oral Tablet 12/16/2016 Provider: Diagnosis: Tamsulosin HCl 0.4MG Oral Capsule 12/16/2016 Provid er: Diagnosis: Flecainide Acetate 50MG Oral Tablet 12/16/2016 Prov ider: Diagnosis: Medications Administered Includes: Administered Medications in patient's chartNo Administered Medications Recorded Vital Signs Includes: Vital Signs from 01/15/2020 through 01/14/2021No Vital Signs Recorded For Specified Dates Results Includes: Results from 01/15/2020 through 01/14/2021No Results Recorded For Specified Dates History of Present Illness History of Present Illness not supported for this document typeNo History of Present Illness Recorded Social History Description Last Updated No consumption of alcohol 09/03/2018 No tobacco use 09/03/2018 Not using drugs 09/03/2018 Previous smoking history 09/03/2018 Smoking status : Former smoker 09/03/2018 Procedures and Surgical History Surgical History Last Updated Surgical / procedural history Right Hip replacement 2006 ~Left hip replacement 2016 ~Pace Maker 2016 ~Nose Polyps 2005 09/03/2018 Medical History Includes: Medical History in patient's chart Description Last Updated Currently wearing eyeglasses 09/03/2018 No recent change in medical history 09/03/2018 History of arthritis 09/03/2018 History of hypertension 09/03/2018 Reported medical history A-Fib 2016 09/03/2018 Family History Includes: Family History in patient's chart Description Last Updated Fraternal history of diabetes mellitus 09/03/2018 Fraternal history of heart disease 09/03/2018 Maternal history of blindness 09/03/2018 Maternal history of cataract 09/03/2018 Paternal history of arthritis 09/03/2018 Paternal history of heart disease 09/03/2018 Sororal history of cataract 09/03/2018 [place] history of family history of cancer 09/03/2018 [place] history of heart disease 09/03/2018 Review of Systems Review of Systems not supported for this document typeNo Review of Systems Recorded Mental Status Mental Status not supported for this document type Description Oriented to time, place, and person Functional Status Functional Status not supported for this document typeNo Functional Status Recorded Physical Exam Physical Exam not supported for this document typeNo Physical Exam Recorded Immunizations Includes: Immunizations in patient's chartNo Immunizations Recorded Allergies Includes: Active, inactive, and resolved AllergiesNo Known Allergies Encounters Includes: Encounters from 01/15/2020 through 01/14/2021No Encounters Recorded For Specified Dates Insurance Includes: Active Insurance Policies Plan Name Member ID Group # Subscriber Relationship Effective Da yassine 1 - Medicare Part [facility] ([facility] [id number] Prem Faye 2 - [facility] [id number] Prem Faye Advance Directives Includes: Current Advance DirectivesNo Advance Directives Recorded Health Concerns Includes: Active Health ConcernsNo Active Health Concerns Recorded Goals Includes: Active GoalsNo Active Goals Recorded Interventions Includes: Interventions for active GoalsNo Interventions Recorded Evaluations & Outcomes Includes: Evaluations & Outcomes for active GoalsNo Outcomes Recorded
--- OUTSIDE RECORDS SUMMARY | 2021-01-17 13:28 | CCD | Continuity of Care Document ---
Author Author Prem ISLAS [place] Organization Unknown Address [address] [place] [phone] Phone [phone] Care Team Providers Care Rn Admissions Name Role Phone Gen Caldera MD [facility] [phone] Problems Description No Information Available Social History Type Date Description Comments Sex Unknown ETOH Use Occasionally consumes wine Tobacco Use Start: Unknown End: Unknown Patient is a former smoker quit in Smoking Status Reviewed: 08/18/20 Patient is a former smoker qu it in Allergies and adverse reactions Description No Known Drug Allergies Medications Active Medications SIG Qnty Indications Ordering Provide r Date Xarelto Unknown Finasteride Unknown History Medications Magic Mouth Wash equal parts viscous lidocain e, maalox & benadryl. swish & spit 5ml 3-4x/day. 1Bottle K12.1 Juancarlos Marcano JR., M.D. 07/2020 - 09/01/2020 K12.0 Valacyclovir HCL 1gm Tablets 2 tab PO qd x1 day 2tabs K12.1 Juancarlos Marcano JR., M.D. 07/2020 - 08/20/2020 K12.0 Immunizations CPT Code Status Date Vaccine Lot # [id number] Given 12/30/2020 Influenza Virus Vaccine, Quadrivalent (Cciiv4), Derived From Cell 34537 Given 11/27/2019 Influenza Virus Vaccine, Quadrivalent (Cciiv4), Derived From Cell Vital Signs Date Vital Result Comment 08/18/2020 10:54am BP Systolic 156 mmHg BP Diastolic 70 mmHg Heart Rate 67 /min Respiratory Rate 18 /min O2 % BldC Oximetry 97 % Body Temperature 98.1 F Weight 228.00 lb Height 74 inches 6'2" BMI (Body Mass Index) 29.3 kg/m2 Pain Level 4 06/27/2020 3:58pm BP Systolic 171 mmHg BP Diastolic 79 mmHg Heart Rate 71 /min Respiratory Rate 16 /min O2 % BldC Oximetry 96 % Body Temperature 96.9 F Weight 228.00 lb Height 74 inches 6'2" BMI (Body Mass Index) 29.3 kg/m2 Pain Level 0 Results Description No Information Available Procedures Date Code Description Status 08/18/2020 30224 Office/Outpatient Established Lo w MDM 20-29 Min Completed Medical Devices Description No Information Available Encounters Type Date Location Provider Dx Diagnosis Office Visit 08/18/2020 9:35a Main Office Faustina Berumen NP L02. 01 Cutaneous abscess of face K12.1 Other forms of stomatitis K12.0 Recurrent oral aphthae Assessments Date Code Description Provider 12/30/2020 Z23 Encounter for immunization BECKY Cobb 08/18/2020 L02.01 Cutaneous abscess of face Faustina Berumen NP 08/18/2020 K12.1 Other forms of stomatitis Faustina Berumen NP 08/18/2020 K12.0 Recurrent oral aphthae Faustina zuniga NP Plan of Treatment 08/18/2020 - Faustina Berumen NP* L02.01 Cutaneous abscess of face * K12.1 Other forms of stomatitis* New Medication:* Magic Mouth Wash - equal parts viscous lidocaine, maalox & benadryl. swish & spit 5ml 3-4x/day. * Valacyclovir HCL 1 gm - 2 tab PO qd x1 day * Comments:* valtrex & magic mouthwash as directedsalt water rinsesadvised to f/u with dentalwarm compress for pain/swellingred flag sx discussedpatient v/u & agrees to plan * K12.0 Recurrent oral aphthae* New Medication:* Magic Mouth Wash - equal parts viscous lidocaine, maalox & benadryl. swish & spit 5ml 3-4x/day. * Valacyclovir HCL 1 gm - 2 tab PO qd x1 day Functional Status Description No Information Available Mental Status Description No Information Available Referrals Description No Information Available
--- OUTSIDE RECORDS SUMMARY | 2021-01-17 13:28 | CCD ---
Continuity of Care Document (CCD) Created on: 11/19/2020 Prem Malloy External Reference #: [id number] : [id number] Sex: Male Author Author Prem BLUE PA-C Organization Unknown Address [address] [place] [address], [place] [address] Phone [phone] Care Team Providers Care Lead Performance Support Analyst Name Role Phone Gen Caldera MD AUTM [phone] Helen Murphy NP AUTM [phone] Macario Bonner MD AUTM [phone] Problems Active Problems Provider Date Paroxysmal atrial fibrillation Canelo Ballard MD Onset: Malaise and fatigue Canelo Ballard MD Onset: 07/24/2015 Electrocardiogram abnormal Canelo Ballard MD Onset: 2015 Mitral valve disorder Canelo Ballard MD Onset: 07/24/2015 Aortic valve disorder Canelo Ballard MD Onset: 07/24/2015 Aneurysm of thoracic aorta Canelo Ballard MD Onset: 2015 Sinus node dysfunction Canelo Ballard MD Onset: 08/28/2015 First degree atrioventricular block Canelo Ballard MD Onse t: 08/28/2015 Benign hypertensive heart disease Canelo Ballard MD Onset: 08/28/2015 Cardiac pacemaker in situ LINNETTE Castellanos Onset: 07/06 Overweight LINNETTE Castellanos Onset: 07/06/2016 Dietary management surveillance LINNETTE Castellanos Onset: 01/10/2017 Aortic root dilatation Brooklynn Blue PA-C Onset: 8 Chronic combined systolic and diastolic heart failure BECKY Munson Onset: 10/20/2017 Dizziness and giddiness BECKY Yancey Onset: 02/05/20 19 Social History Type Date Description Comments Sex Unknown ETOH Use Consumes Liquor One [place] pe r night Tobacco Use Start: Unknown Patient has never smoked Smoking Status Reviewed: 09/21/20 Patient has never smoked Exercise Type/Frequency Swimming 3-4 time s a week Exercise Type/Frequency Does gardening sporadica lly Exercise Type/Frequency Walks sporadically Exercise Limitations Joint Pain Bilateral s houlder and knee Allergies and adverse reactions Description No Known Drug Allergies Medications Active Medications SIG Qnty Indications Ordering Provide r Date Glucosamine Chondroitin Complex C apsules 1 po qd Unknown 03/23/2020 Xarelto 20mg Tablets 1 by mouth every day Gen Caldera MD 02/03/2019 Vitamin B12 1000mcg Tablets ER 1 by mouth every day Unknown 03/07/2017 Acetaminophen Extra Strength 500mg Tablets 1-2 by mouth as needed Unknown 07/27 Proscar 5mg Tablets 1 by mouth every day Unknown 07/23/2015 Immunizations Description No Information Available Vital Signs Date Vital Result Comment 09/21/2020 10:23am Weight 240.00 lb Home Weight 235lb Height 74 inches 6'2" BMI (Body Mass Index) 30.8 kg/m2 Heart Rate 76 /min Regular Respiratory Rate 16 /min BP Systolic Right Arm 132 mmHg sitting, regular c uff BP Diastolic Right Arm 74 mmHg sitting, regular cuff BP Systolic Left Arm 128 mmHg sitting BP Diastolic Left Arm 74 mmHg sitting 03/24/2020 10:50am Weight 238.00 lb Home Weight 233lb Home weight Height 74 inches 6'2" BMI (Body Mass Index) 30.6 kg/m2 Heart Rate 72 /min Regular Respiratory Rate 16 /min BP Systolic Right Arm 126 mmHg sitting, regular c uff BP Diastolic Right Arm 74 mmHg sitting, regular cuff BP Systolic Left Arm 126 mmHg sitting BP Diastolic Left Arm 70 mmHg sitting Results Test Acquired Date Facility Test Result H/L Range Note CMP 08/28/2020 [facility] - not interfaced (315)- - Albumin Serum/Plasma 3.3 Alt - SGPT 18 Calcium Ser/Plasma Mass/Vol 9.0 Carbon Dioxide Ser/Plasm 29 Chloride Serum/Plasma 107 Alkaline Phosphatase 54 Potassium 4.4 Protein Total 6.6 Sodium 140 Ast - Sgot 13 BUN - Urea Nitrogen 17 Glucose 86 83-110 Creatinine For GFR 0.93 Lipid Profile/Cardiac Risk Pro 08/28/2020 [facility] - not interfaced (315)- - Triglycerides 94 <150 Cholesterol 146 <200 HDL 46 >40.0 LDL Cholesterol 81 Chol/HDL Ratio 3.173 <5 Procedures Date Code Description Status 11/19/2020 42170 Pacer Interrogation Any Leads Co mpleted 09/21/2020 73006 Office/Outpatient Established Mo d MDM 30-39 Min Completed 09/21/2020 65901 ECG 12-Lead Completed Medical Devices Description No Information Available Encounters Type Date Location Provider Dx Diagnosis Office Visit 09/21/2020 10:15a Main Office Brooklynn Blue PA-C I48.0 Paroxysmal atrial fibrillation I11.9 Hypertensive heart disease w ithout heart failure I77.810 Thoracic aortic ectasia I34.0 Nonrheumatic mitral (valve) insufficiency I35.1 Nonrheumatic aortic (valve) insufficiency R94.31 Abnormal electrocardiogram [ ECG] [EKG] I49.5 Sick sinus syndrome Z95.0 Presence of cardiac pacemake r Z71.3 Dietary counseling and surve illance Assessments Date Code Description Provider 11/19/2020 I49.5 Sick sinus syndrome SANTIAGO IyerC 09/21/2020 I48.0 Paroxysmal atrial fibrillation K ate BECKY Ferris-C 09/21/2020 I11.9 Hypertensive heart disease witho ut heart failure SANTIAGO WhitmanC 09/21/2020 I77.810 Thoracic aortic ectasia SANTIAGO HernandezC 09/21/2020 I34.0 Nonrheumatic mitral (valve) insu fficiency BECKY Whitman-C 09/21/2020 I35.1 Nonrheumatic aortic (valve) insu fficiency BECKY Whitman-C 09/21/2020 R94.31 Abnormal electrocardiogram [ECG] [EKG] SANTIAGO WhitmanC 09/21/2020 I49.5 Sick sinus syndrome SANTIAGO IyerC 09/21/2020 Z95.0 Presence of cardiac pacemaker SANTIAGO CastanedaC 09/21/2020 Z71.3 Dietary counseling and surveilla nce Brooklynn Blue PA-C Plan of Treatment Future Appointment(s):* 06/09/2021 9:30 am - Brooklynn Blue PA-C at Main Office * 03/24/2021 10:15 am - Brooklynn Blue PA-C at Main Office 09/21/2020 - Brooklynn Blue PA-C* I48.0 Paroxysmal atrial fibrillation * I11.9 Hypertensive heart disease without heart failure * I77.810 Thoracic aortic ectasia * I34.0 Nonrheumatic mitral (valve) insufficiency * I35.1 Nonrheumatic aortic (valve) insufficiency * R94.31 Abnormal electrocardiogram [ECG] [EKG] * I49.5 Sick sinus syndrome * Z95.0 Presence of cardiac pacemaker * Z71.3 Dietary counseling and surveillance* Recommendations:* Follow a low fat/low cholesterol diet and do as much aerobic exercise as you can tolerate. * All * Follow up:* 6 month follow up. Functional Status Functional Condition Comment Date Status Independent with all ADL's Activ e Mental Status Description No Information Available Referrals Description No Information Available
--- OUTSIDE RECORDS SUMMARY | 2021-01-17 13:28 | CCD | Continuity of Care Document ---
Author Author Prem GLOVER PA Organization Unknown Address [address] [place] [address], [address] [place] [address] Phone [phone] Care Team Providers Care Turkey Boner Name Role Phone Gen Caldera MD AUTM [phone] Problems Active Problems Provider Date Benign hypertensive heart disease Canelo Ballard MD Onset: 08/28/2015 First degree atrioventricular block Canelo Ballard MD Onse t: 08/28/2015 Sinus node dysfunction Canelo Ballard MD Onset: 08/28/2015 Aneurysm of thoracic aorta Canelo Ballard MD Onset: 2015 Aortic valve disorder Canelo Ballard MD Onset: 07/24/2015 Mitral valve disorder Canelo Ballard MD Onset: 07/24/2015 Electrocardiogram abnormal Canelo Ballard MD Onset: 2015 Malaise and fatigue Canelo Ballard MD Onset: 07/24/2015 Paroxysmal atrial fibrillation Canelo Ballard MD Onset: Social History Type Date Description Comments Sex Unknown ETOH Use Currently consumes alcohol daily Tobacco Use Start: Unknown End: Unknown Patient is a former smoker Allergies and adverse reactions Description No Known Drug Allergies Medications Active Medications SIG Qnty Indications Ordering Provide r Date Euflexxa 20mg/2ML Soln Prefill Syr demetria anders knee #1 mkm/nlg 03/18/2019 anders knee #2 mkm/cp 03/26/19 anders knee #3 iid/ag 04/03/2019 M17.0 Bhaskar Roberts MD 0 Xarelto 20mg Tablets Unknown Finasteride 5mg Tablets Unknown History Medications Gel-One 30mg/3ML Prsy Anders Knee 07/24/20 Iid/SH M17.0 Last Aguirre MD 07/24/2020 - 12/03/2020 Immunizations Description No Information Available Vital Signs Date Vital Result Comment 04/13/2020 10:28am Body Temperature 97.5 F Height 73 inches 6'1" Weight 234.12 lb BMI (Body Mass Index) 30.9 kg/m2 11/06/2015 3:00pm Body Temperature 97.8 F Results Description No Information Available Procedures Date Code Description Status 12/04/2020 09563 Office/Outpatient Established Lo w MDM 20-29 Min Completed 12/04/2020 Inject/Drain Joint/Bursa Major C ompleted 07/24/2020 Inject/Drain Joint/Bursa Major C ompleted Medical Devices Description No Information Available Encounters Type Date Location Provider Dx Diagnosis Office Visit 12/04/2020 2:00p [place] BECKY Lyle M17.0 Bilateral primary osteoarthritis of knee M19.011 Primary osteoarthritis, righ t shoulder M19.012 Primary osteoarthritis, left shoulder Office Visit 07/24/2020 1:15p [place] BECKY Lyle M17.0 Bilateral primary osteoarthritis of knee Assessments Date Code Description Provider 12/04/2020 M17.0 Bilateral primary osteoarthritis of knee BECKY Lyle 12/04/2020 M19.011 Primary osteoarthritis, right sh oulder BECKY Lyle 12/04/2020 M19.012 Primary osteoarthritis, left bernardo ulder BECKY Lyle 07/24/2020 M17.0 Bilateral primary osteoarthritis of knee BECKY Lyle Plan of Treatment 12/04/2020 - BECKY Lyle* M17.0 Bilateral primary osteoarthritis of knee * Follow up:* in 6 weeks with IID wth anders shoulder xrays * M19.011 Primary osteoarthritis, right shoulder * M19.012 Primary osteoarthritis, left shoulder Functional Status Description No Information Available Mental Status Description No Information Available Referrals Refer to Dr Reason for Referral Status Appt Date Ant Glover Pac Physical therapy anders shoulde rs per medicare no auth req based on medical necessity, [place] [facility] [place] dept [place]. Created [address] [facility] [address] [place] [address] [phone]
--- OUTSIDE RECORDS SUMMARY | 2021-01-17 13:28 | CCD | Continuity of Care Document ---
Author Author Prem ISLAS NC Organization Unknown Address [address] [place] [address] Phone [phone] Care Team Providers Care Cylinder Filler Name Role Phone Gen Caldera MD [facility] [phone] Problems Description No Information Available Social History [...] CPT Code Status Date Vaccine Lot # [id number] Given 12/30/2020 Influenza Virus Vaccine, Quadrivalent (Cciiv4), Derived From Cell [id number] Given 11/27/2019 Influenza Virus Vaccine, Quadrivalent (Cciiv4), [...] Available Procedures Date Code Description Status 08/18/2020 36151 Office/Outpatient Established Lo w MDM 20-29 Min [...]
--- OUTSIDE RECORDS SUMMARY | 2021-01-17 13:28 | CCD | Continuity of Care Document ---
Author Author Prem BLUE PA-C Organization Unknown Address [address] [place] [address], [place] [address] Phone [phone] Care Team Providers Care Training And Development Coordinator Name Role Phone Gen Caldera MD AUTM [phone] Helen Murphy NP AUTM [phone] Macario Bonner MD AUTM [phone] Problems Active Problems Provider Date Paroxysmal atrial [...] Test Result H/L Range Note CMP 08/28/2020 [facility] - not interfaced (315)- - Albumin Serum/Plasma 3.3 Alt - SGPT 18 Calcium Ser/Plasma Mass/Vol 9.0 Carbon Dioxide Ser/Plasm 29 Chloride Serum/Plasma 107 Alkaline Phosphatase 54 Potassium 4.4 Protein Total 6.6 Sodium 140 Ast - Sgot 13 BUN - Urea Nitrogen 17 Glucose 86 83-110 Creatinine For GFR 0.93 Lipid Profile/Cardiac Risk Pro 08/28/2020 [facility] - not interfaced (315)- - Triglycerides 94 <150 Cholesterol 146 <200 HDL 46 >40.0 LDL Cholesterol 81 Chol/HDL Ratio 3.173 <5 Procedures Date Code Description Status 11/19/2020 15340 Pacer Interrogation Any Leads Co mpleted 09/21/2020 21025 Office/Outpatient Established Mo d MDM 30-39 Min Completed 09/21/2020 39497 ECG 12-Lead Completed Medical Devices Description No [...]
--- OUTSIDE RECORDS SUMMARY | 2021-01-17 13:28 | CCD | Continuity of Care Document ---
Author Author Prem BLUE PA-C Organization Unknown Address [address] [place] [address], [place] [address] Phone [phone] Care Team Providers Care Deputy Harbormaster Name Role Phone Gen Caldera MD AUTM [phone] Helen Murphy NP AUTM [phone] Macario Bonner MD AUTM [phone] Problems Active Problems Provider Date Paroxysmal atrial [...] Test Result H/L Range Note CMP 08/28/2020 [facility] - not interfaced (315)- - Albumin Serum/Plasma 3.3 Alt - SGPT 18 Calcium Ser/Plasma Mass/Vol 9.0 Carbon Dioxide Ser/Plasm 29 Chloride Serum/Plasma 107 Alkaline Phosphatase 54 Potassium 4.4 Protein Total 6.6 Sodium 140 Ast - Sgot 13 BUN - Urea Nitrogen 17 Glucose 86 83-110 Creatinine For GFR 0.93 Lipid Profile/Cardiac Risk Pro 08/28/2020 [facility] - not interfaced (315)- - Triglycerides 94 <150 Cholesterol 146 <200 HDL 46 >40.0 LDL Cholesterol 81 Chol/HDL Ratio 3.173 <5 Procedures Date Code Description Status 11/19/2020 08567 Pacer Interrogation Any Leads Co mpleted 09/21/2020 35693 Office/Outpatient Established Mo d MDM 30-39 Min Completed 09/21/2020 16173 ECG 12-Lead Completed Medical Devices Description No [...]
--- OUTSIDE RECORDS SUMMARY | 2021-01-17 13:28 | CCD | Continuity of Care Document ---
Author Author Prem SAINI PA Organization Unknown Address [address] [place] [address], [address] [place] [address] Phone [phone] Care Team Providers Care Podopediatrician Name Role Phone Gen Caldera MD AUTM [phone] Problems Active Problems Provider Date Benign hypertensive [...] SIG Qnty Indications Ordering Provide r Date Gel-One 30mg/3ML Prsy Anders Knee 07/24/20 Iid/SH M17.0 Last Aguirre MD 07/24/2020 Euflexxa 20mg/2ML Soln Prefill Syr demetria anders knee #1 mkm/nlg 03/18/2019 anders knee #2 mkm/cp 03/26/19 anders knee #3 iid/ag 04/03/2019 M17.0 Bhaskar Roberts MD 0 Acetaminophen Extra Strength 500mg Tablets 1-2 by mouth as needed Unknown 07/27 Xarelto 20mg Tablets Unknown Flomax 0.4mg Capsules 1 by mouth every day Unknown Digoxin 250mcg Tablets 1 by mouth every day Unknown Carvedilol 6.25mg Tablets Unknown Finasteride 5mg Tablets Unknown [id number] 1mg Chewtabs Unknown Tolterodine Tartrate ER 2mg Caps E R 24HR Take One Capsule By Mouth Once Daily Unknown Oxybutynin Chloride 5mg Tablets Take One Tablet By Mouth AT Bedtime Once Daily Unknown Amoxicillin 500mg Capsules Take Four Capsules By Mouth Every Hour Prior To Dental Appointment Unknown Immunizations Description No Information Available Vital Signs Date Vital Result Comment 04/13/2020 10:28am Body Temperature 97.5 F Height 73 inches 6'1" Weight 234.12 lb BMI (Body Mass Index) 30.9 kg/m2 11/06/2015 3:00pm Body Temperature 97.8 F Results Description No Information Available Procedures Date Code Description Status 12/04/2020 50273 Office/Outpatient Established Lo w MDM 20-29 Min Completed 12/04/202096899 Inject/Drain Joint/Bursa Major C ompleted 07/24/2020 68827 Inject/Drain Joint/Bursa Major C ompleted Medical Devices Description No Information Available Encounters Type Date Location Provider Dx Diagnosis Office Visit 12/04/2020 2:00p [place] M17.0 Bilateral primary osteoarthritis of knee M19.011 Primary osteoarthritis, righ t shoulder M19.012 Primary osteoarthritis, left shoulder Office Visit 07/24/2020 1:15p [place] BECKY Lyle M17.0 Bilateral primary osteoarthritis of [...] Follow up:* in 6 weeks with IID * M19.011 Primary osteoarthritis, right shoulder * M19.012 Primary osteoarthritis, left shoulder Functional Status Description No Information Available Mental Status Description No Information Available Referrals Description No Information Available
--- OUTSIDE RECORDS SUMMARY | 2021-01-17 13:29 | CCD ---
Author Author [facility] Organization [facility] Address Unknown Phone Unavailable Care Team Providers Care Epic Application Coordinator Name Role Phone Faustina Berumen REHABILITATION INSPECTOR Unavailable Unavailable Faustina Berumen REHABILITATION INSPECTOR Unavailable Unavailable Faustina Berumen REHABILITATION INSPECTOR Unavailable Unavailable Faustina Berumen REHABILITATION INSPECTOR Unavailable Unavailable Faustina Berumen REHABILITATION INSPECTOR Unavailable Unavailable Faustina Berumen REHABILITATION INSPECTOR Unavailable Unavailable Faustina Berumen REHABILITATION INSPECTOR Unavailable Unavailable Berumen, Faustina REHABILITATION INSPECTOR Unavailable Unavailable Berumen, Faustina REHABILITATION INSPECTOR Unavailable Unavailable Berumen, Faustina REHABILITATION INSPECTOR Unavailable Unavailable Berumen, Faustina REHABILITATION INSPECTOR Unavailable Unavailable Berumen, Faustina REHABILITATION INSPECTOR Unavailable Unavailable Berumen, Faustina REHABILITATION INSPECTOR Unavailable Unavailable Symenow, Deloris Brooklynn PA Unavailable Unavailable Symenow, Deloris Brooklynn PA Unavailable Unavailable Symenow, Deloris Brooklynn PA Unavailable Unavailable Symenow, Deloris Brooklynn PA Unavailable Unavailable Symenow, Deloris Brooklynn PA Unavailable Unavailable Symenow, Deloris Brooklynn PA Unavailable Unavailable Symenow, Deloris Brooklynn PA Unavailable Unavailable Symenow, Deloris Brooklynn PA Unavailable Unavailable Symenow, Deloris Brooklynn PA Unavailable Unavailable Symenow, Deloris Brooklynn PA Unavailable Unavailable Symenow, Deloris Brooklynn PA Unavailable Unavailable Symenow, Deloris Brooklynn PA Unavailable Unavailable Symenow, Deloris Brooklynn PA Unavailable Unavailable Symenow, Deloris Brooklynn PA Unavailable Unavailable Symenow, Deloris Brooklynn PA Unavailable Unavailable Symenow, Deloris Brooklynn PA Unavailable Unavailable Symenow, Deloris Brooklynn PA Unavailable Unavailable Symenow, Deloris Brooklynn PA Unavailable Unavailable Symenow, Deloris Brooklynn PA Unavailable Unavailable Symenow, Deloris Brooklynn PA Unavailable Unavailable Symenow, Deloris Brooklynn PA Unavailable Unavailable Symenow, Deloris Brooklynn PA Unavailable Unavailable Symenow, Deloris Brooklynn PA Unavailable Unavailable Symenow, Deloris Brooklynn PA Unavailable Unavailable Symenow, Deloris Brooklynn PA Unavailable Unavailable Symenow, Deloris Brooklynn PA Unavailable Unavailable Symenow, Deloris Brooklynn PA Unavailable Unavailable Symenow, Deloris Brooklynn PA Unavailable Unavailable Symenow, Deloris Brooklynn PA Unavailable Unavailable Symenow, Deloris Brooklynn PA Unavailable Unavailable Symenow, Deloris Brooklynn PA Unavailable Unavailable Symenow, Deloris Brooklynn PA Unavailable Unavailable Symenow, Deloris Brooklynn PA Unavailable Unavailable Symenow, Deloris Brooklynn PA Unavailable Unavailable Conover, Khurram MD Unavailable Unavailable Conover, Khurram MD Unavailable Unavailable Conover, Khurram MD Unavailable Unavailable Conover, Khurram MD Unavailable Unavailable Conover, Khurram MD Unavailable Unavailable Conover, Khurram MD Unavailable Unavailable Conover, Khurram MD Unavailable Unavailable Conover, Khurram MD Unavailable Unavailable Conover, Khurram MD Unavailable Unavailable Conover, Khurram MD Unavailable Unavailable Conover, Khurram MD Unavailable Unavailable Conover, Khurram MD Unavailable Unavailable Conover, Khurram MD Unavailable Unavailable Conover, Khurram MD Unavailable Unavailable Conover, Khurram MD Unavailable Unavailable Conover, Khurram MD Unavailable Unavailable Conover, Khurram MD Unavailable Unavailable Conover, Khurram MD Unavailable Unavailable Conover, Khurram MD Unavailable Unavailable Conover, Khurram MD Unavailable Unavailable Conover, Khurram MD Unavailable Unavailable Conover, Khurram MD Unavailable Unavailable Conover, Khurram MD Unavailable Unavailable Conover, Khurram MD Unavailable Unavailable Conover, Khurram MD Unavailable Unavailable Conover, Khurram MD Unavailable Unavailable Conover, Khurram MD Unavailable Unavailable Conover, Khurram MD Unavailable Unavailable Conover, Khurram MD Unavailable Unavailable Conover, Khurram MD Unavailable Unavailable Conover, Khurram MD Unavailable Unavailable DRAZEK, I VIPIN PA Unavailable Unavailable DRAZEK, I VIPIN PA Unavailable Unavailable DRAZEK, I VIPIN PA Unavailable Unavailable DRAZEK, I VIPIN PA Unavailable Unavailable DRAZEK, I VIPIN PA Unavailable Unavailable DRAZEK, I VIPIN PA Unavailable Unavailable DRAZEK, I VIPIN PA Unavailable Unavailable DRAZEK, I VIPIN PA Unavailable Unavailable DRAZEK, I VIPIN PA Unavailable Unavailable DRAZEK, I VIPIN PA Unavailable Unavailable DRAZEK, I VIPIN PA Unavailable Unavailable DRAZEK, I VIPIN PA Unavailable Unavailable DRAZEK, I VIPIN PA Unavailable Unavailable DRAZEK, I VIPIN PA Unavailable Unavailable DRAZEK, I VIPIN PA Unavailable Unavailable DRAZEK, I VIPIN PA Unavailable Unavailable DRAZEK, I VIPIN PA Unavailable Unavailable DRAZEK, I VIPIN PA Unavailable Unavailable DRAZEK, I VIPIN PA Unavailable Unavailable DRAZEK, I VIPIN PA Unavailable Unavailable DRAZEK, I VIPIN PA Unavailable Unavailable DRAZEK, I VIPIN PA Unavailable Unavailable DRAZEK, I VIPIN PA Unavailable Unavailable DRAZEK, I VIPIN PA Unavailable Unavailable DRAZEK, I VIPIN PA Unavailable Unavailable DRAZEK, I VIPIN PA Unavailable Unavailable DRAZEK, I VIPIN PA Unavailable Unavailable DRAZEK, I VIPIN PA Unavailable Unavailable DRAZEK, I VIPIN PA Unavailable Unavailable DRAZEK, I VIPIN PA Unavailable Unavailable Downs, Anival PA-C Unavailable Unavailable Downs, Anival PA-C Unavailable Unavailable Downs, Anival PA-C Unavailable Unavailable Downs, Anival PA-C Unavailable Unavailable Downs, Anival PA-C Unavailable Unavailable Downs, Anival PA-C Unavailable Unavailable Downs, Anival PA-C Unavailable Unavailable Downs, Anival PA-C Unavailable Unavailable Downs, Anival PA-C Unavailable Unavailable Downs, Anival PA-C Unavailable Unavailable Downs, Anival PA-C Unavailable Unavailable Giselle Bonner MD Unavailable Unavailable Giselle Bonner MD Unavailable Unavailable Giselle Bonner MD Unavailable Unavailable Giselle Bonner MD Unavailable Unavailable Giselle Bonner MD Unavailable Unavailable Giselle Bonner MD Unavailable Unavailable Giselle Bonner MD Unavailable Unavailable Giselle Bonner MD Unavailable Unavailable Giselle Bonner MD Unavailable Unavailable Giselle Bonner MD Unavailable Unavailable Giselle Bonner MD Unavailable Unavailable Giselle Bonner MD Unavailable Unavailable Giselle Bonner MD Unavailable Unavailable Giselle Bonner MD Unavailable Unavailable Giselle Bonner MD Unavailable Unavailable Giselle Bonner MD Unavailable Unavailable Giselle Bonner MD Unavailable Unavailable Giselle Bonner MD Unavailable Unavailable Giselle Bonner MD Unavailable Unavailable Giselle Bonner MD Unavailable Unavailable Giselle Bonner MD Unavailable Unavailable Giselle Bonner MD Unavailable Unavailable Giselle Bonner MD Unavailable Unavailable Giselle Bonner MD Unavailable Unavailable Giselle Bonner MD Unavailable Unavailable Giselle Bonner MD Unavailable Unavailable Giselle Bonner MD Unavailable Unavailable Giselle Bonner MD Unavailable Unavailable Giselle Bonner MD Unavailable Unavailable Giselle Bonner MD Unavailable Unavailable Giselle Bonner MD Unavailable Unavailable Giselle Bonner MD Unavailable Unavailable Giselle Bonner MD Unavailable Unavailable Giselle Bonner MD Unavailable Unavailable Giselle Bonner MD Unavailable Unavailable Giselle Bonner MD Unavailable Unavailable Vaneenenaam, Giselle Sorto MD Unavailable Unavailable Vaneenenaam, Giselle Sorto MD Unavailable Unavailable Vaneenenaam, Giselle Sorto MD Unavailable Unavailable Vaneenenaam, Giselle Sorto MD Unavailable Unavailable Vaneenenaam, Giselle Sorto MD Unavailable Unavailable Vaneenenaam, Giselle Sorto MD Unavailable Unavailable Vaneenenaam, Giselle Sorto MD Unavailable Unavailable Vaneenenaam, Giselle Sorto MD Unavailable Unavailable Vaneenenaam, Giselle Sorto MD Unavailable Unavailable Vaneenenaam, Giselle Sorto MD Unavailable Unavailable Vaneenenaam, Giselle Sorto MD Unavailable Unavailable Isael, Whitney Trevino PH.D., M.D. Unavailable Unavailable Isael, Whitney Trevino PH.D., M.D. Unavailable Unavailable Isael, Whitney Trevino PH.D., M.D. Unavailable Unavailable Isael, Whitney Trevino PH.D., M.D. Unavailable Unavailable Isael, Whitney Trevino PH.D., M.D. Unavailable Unavailable Isael, Whitney Trevino PH.D., M.D. Unavailable Unavailable Isael, Whitney Trevino PH.D., M.D. Unavailable Unavailable Isael, Whitney Trevino PH.D., M.D. Unavailable Unavailable Isael, Whitney Trevino PH.D., M.D. Unavailable Unavailable Isael, Whitney Trevino PH.D., M.D. Unavailable Unavailable Isael, Whitney Trevino PH.D., M.D. Unavailable Unavailable Isael, Whitney Trevino PH.D., M.D. Unavailable Unavailable Isael, Whitney Trevino PH.D., M.D. Unavailable Unavailable Isael, Whitney Trevino PH.D., M.D. Unavailable Unavailable Isael, Whitney Trevino PH.D., M.D. Unavailable Unavailable Isael, Whitney Trevino PH.D., M.D. Unavailable Unavailable Isael, Whitney Trevino PH.D., M.D. Unavailable Unavailable Isael, Whitney Trevino PH.D., M.D. Unavailable Unavailable Isael, Whitney Trevino PH.D., M.D. Unavailable Unavailable Isael, Whitney Trevino PH.D., M.D. Unavailable Unavailable Isael, Whitney Trevino PH.D., M.D. Unavailable Unavailable Isael, Whitney Trevino PH.D., M.D. Unavailable Unavailable Isael, Whitney Trevino PH.D., M.D. Unavailable Unavailable Isael, Whitney Trevino PH.D., M.D. Unavailable Unavailable Isael, Whitney Trevino PH.D., M.D. Unavailable Unavailable Isael, Whitney Trevino PH.D., M.D. Unavailable Unavailable Isael, C Uriel PH.D., M.D. Unavailable Unavailable Isael, C Uriel PH.D., M.D. Unavailable Unavailable Isael, C Uriel PH.D., M.D. Unavailable Unavailable Isael, C Uriel PH.D., M.D. Unavailable Unavailable Isael, C Uriel PH.D., M.D. Unavailable Unavailable Isael, C Uriel PH.D., M.D. Unavailable Unavailable Isael, C Uriel PH.D., M.D. Unavailable Unavailable Isael, C Uriel PH.D., M.D. Unavailable Unavailable Isael, C Uriel PH.D., M.D. Unavailable Unavailable Isael, C Uriel PH.D., M.D. Unavailable Unavailable Isael, C Uriel PH.D., M.D. Unavailable Unavailable Isael, C Uriel PH.D., M.D. Unavailable Unavailable Isael, C Uriel PH.D., M.D. Unavailable Unavailable Isael, C Uriel PH.D., M.D. Unavailable Unavailable Isael, C Uriel PH.D., M.D. Unavailable Unavailable Isael, C Uriel PH.D., M.D. Unavailable Unavailable Isael, C Uriel PH.D., M.D. Unavailable Unavailable Isael, C Uriel PH.D., M.D. Unavailable Unavailable Isael, C Uriel PH.D., M.D. Unavailable Unavailable Isael, C Uriel PH.D., M.D. Unavailable Unavailable Isael, C Uriel PH.D., M.D. Unavailable Unavailable Isael, C Uriel PH.D., M.D. Unavailable Unavailable Isael, C Uriel PH.D., M.D. Unavailable Unavailable Isael, C Uriel PH.D., M.D. Unavailable Unavailable Isael, C Uriel PH.D., M.D. Unavailable Unavailable Isael, C Uriel PH.D., M.D. Unavailable Unavailable Isael, C Uriel PH.D., M.D. Unavailable Unavailable Isael, C Uriel PH.D., M.D. Unavailable Unavailable Isael, C Uriel PH.D., M.D. Unavailable Unavailable Isael, C Uriel PH.D., M.D. Unavailable Unavailable Isael, C Uriel PH.D., M.D. Unavailable Unavailable Isael, C Uriel PH.D., M.D. Unavailable Unavailable Isael, C Uriel PH.D., M.D. Unavailable Unavailable Isael, C Uriel PH.D., M.D. Unavailable Unavailable Isael, Whitney Trevino PH.D., M.D. Unavailable Unavailable Isael, Whitney Trevino PH.D., M.D. Unavailable Unavailable Isael, Whitney Trevino PH.D., M.D. Unavailable Unavailable Isael, Whitney Trevino PH.D., M.D. Unavailable Unavailable Isael, Whitney Trevino PH.D., M.D. Unavailable Unavailable Isael, Whitney Trevino PH.D., M.D. Unavailable Unavailable Isael, Whitney Trevino PH.D., M.D. Unavailable Unavailable Isael, Whitney Trevino PH.D., M.D. Unavailable Unavailable Isael, Whitney Trevino PH.D., M.D. Unavailable Unavailable Isael, Whitney Trevino PH.D., M.D. Unavailable Unavailable Isael, Whitney Trevino PH.D., M.D. Unavailable Unavailable Isael, Whitney Trevino PH.D., M.D. Unavailable Unavailable Isael, Whitney Trevino PH.D., M.D. Unavailable Unavailable Isael, Whitney Trevino PH.D., M.D. Unavailable Unavailable Isael, Whitney Trevino PH.D., M.D. Unavailable Unavailable Isael, Whitney Trevino PH.D., M.D. Unavailable Unavailable Isael, Whitney Trevino PH.D., M.D. Unavailable Unavailable Isael, Whitney Trevino PH.D., M.D. Unavailable Unavailable Isael, Whitney Trevino PH.D., M.D. Unavailable Unavailable Isael, Whitney Trevino PH.D., M.D. Unavailable Unavailable Isael, Whitney Trevino PH.D., M.D. Unavailable Unavailable Isael, Whitney Trevino PH.D., M.D. Unavailable Unavailable Re-disclosure Warning The records that you are about to access may contain information from federally-assisted alcohol or drug abuse programs. If such information is present, then the following federally mandated warning applies: This information has been disclosed to you from records protected by federal confidentiality rules (42 CFR part 2). The federal rules prohibit you from making any further disclosure of this information unless further disclosure is expressly permitted by the written consent of the person to whom it pertains or as otherwise permitted by 42 CFR part 2. A general authorization for the release of medical or other information is NOT sufficient for this purpose. The Federal rules restrict any use of the information to criminally investigate or prosecute any alcohol or drug abuse patient.The records that you are about to access may contain highly sensitive health information, the redisclosure of which is protected by Article 27-F of the [facility] Public Health law. If you continue you may have access to information: Regarding HIV / AIDS; Provided by facilities licensed or operated by the [facility] Office of Mental Health; or Provided by the [facility] Office for People With Developmental Disabilities. If such information is present, then the following [facility] mandated warning applies: This information has been disclosed to you from confidential records which are protected by state law. State law prohibits you from making any further disclosure of this information without the specific written consent of the person to whom it pertains, or as otherwise permitted by law. Any unauthorized further disclosure in violation of state law may result in a fine or [place] health care facility sentence or both. A general authorization for the release of medical or other information is NOT sufficient authorization for further disc losure. Family History Family Member Name Family Member Gender Family Member Status Date o f Status Description Data Source(s) Unknown Female Problem [facility] ([facility], ) Unknown Female Problem [facility] ([facility], ) Unknown Female Problem [facility] ([facility], ) Encounters Encounter Providers Location Date Indications Data Source(s ) OFFICE OUTPATIENT VISIT 15 MINUTES Attender: VIPIN PENA Phys ical Therapy 12/04/2020 02:00:00 PM EDT [facility] ([facility] ) Outpatient Attender: Anival Mancia PA-C 06/2020 11:13:41 AM EDT - 10/18/2020 12:13:34 PM EDT [facility] ([facility] ) Outpatient [address] [facility] [id number] 10/06/2020 12:00:00 AM EDT eCW1 ([facility]) Outpatient Attender: Brooklynn PENA Main Office 09/21/2020 10:15:00 AM EDT [facility] ([facility]) Unknown [address] [facility] [place] [address] 09/15/2020 12:00:00 AM EDT eCW1 ([facility]) Outpatient [address] [facility] [id number] 09/14/2020 12:00:00 AM EDT eCW1 ([facility]) [place] [address] [facility] [place] [address] 09/14/2020 12:00:00 AM EDT eCW1 ([facility]) [place] [address] [facility] [address] 08/28/2020 12:00:00 AM EDT eCW1 ([facility]) Outpatient Attender: Khurram Shankar/Marc/Skyler/Reind l 08/27/2020 03:30:00 PM EDT [facility] ([facility], ) [place] [address] [facility] [address] 08/26/2020 12:00:00 AM EDT eCW1 ([facility]) Outpatient Attender: Khurram Shankar/Marc/Skyler/Reind l 08/24/2020 01:30:00 PM EDT [facility] ([facility], ) Outpatient Attender: Uriel Kirkland PH.D., M.D. Raad/Marc/Scooter bangura/Reinarmando 08/21/2020 01:15:00 PM EDT [facility] ([facility], ) Outpatient Attender: Faustina Marmolejo umm 08/18/2020 09:35:00 AM EDT [facility] ([facility]) Office Visit Attender: VIPIN PENA Physical Therapy 2020 01:15:00 PM EDT [facility] ([facility] ) Outpatient Attender: Faustina Marmolejo umm 06/27/2020 03:40:00 PM EDT [facility] ([facility]) Outpatient Attender: VIPIN PENA Physical Therapy 06/04/2020 0 2:00:00 PM EDT [facility] ([facility] ) Outpatient Attender: Giselle Bonner MD Physical Therap y 04/13/2020 09:15:00 AM EST [facility] ([facility] ) Outpatient Attender: Brooklynn PENA Main Office 03/24/2020 09:45:00 AM EST [facility] ([facility]) [place] [address] [facility] [place] [address] 03/16/2020 12:00:00 AM EST eCW1 ([facility]) [place] [address] [facility] [place] [address] 03/09/2020 12:00:00 AM EST eCW1 ([facility]) [place] [address] [facility] [place] [address] 02/20/2020 12:00:00 AM EST eCW1 ([facility]) Outpatient [address] [facility] [place] [address] 02/11/2020 12:00:00 AM EST eCW1 ([facility]) Outpatient [address] [facility] [id number] 01/15/2020 12:00:00 AM EST eCW1 ([facility]) (Cysto1) Urology [address] [place] [address] 12/18/2019 12:00:00 AM EST eCW1 ([facility]) Outpatient [address] [facility] [place] [address] 12/03/2019 12:00:00 AM EDT eCW1 ([facility]) Immunizations Vaccine Date Status Description Data Source(s) Influenza Virus Vaccine, Quadrivalent (Cciiv4), Derive d From Cell 12/30/2020 09:55:00 AM EST completed [facility] ([facility]) COVID-19 VACCINE Moderna 12/16/2020 12:00:00 AM EDT completed [employer] Vaccine Series Complete: YESThis Data wa s Submitted to [facility] Via [employer]. COVID-19 dose #2 given elsewhere Unspecified 05/05/2020 01:2 8:00 PM EDT completed eCW1 ([facility]) COVID-19 dose #2 given elsewhere Unspecified 05/05/2020 01:2 8:00 PM EDT completed eCW1 ([facility]) COVID-19 dose #2 given elsewhere Unspecified 05/05/2020 01:2 8:00 PM EDT completed eCW1 ([facility]) COVID-19 dose #2 given elsewhere Unspecified 05/05/2020 01:2 8:00 PM EDT completed eCW1 ([facility]) COVID-19 VACCINE Moderna 05/05/2020 12:00:00 AM EDT completed [employer] Vaccine Series Complete: YESThis Data wa s Submitted to [facility] Via [employer]. COVID-19 dose #1 given elsewhere Unspecified 04/10/2020 01:2 8:00 PM EST completed eCW1 ([facility]) COVID-19 dose #1 given elsewhere Unspecified 04/10/2020 01:2 8:00 PM EST completed eCW1 ([facility]) COVID-19 dose #1 given elsewhere Unspecified 04/10/2020 01:2 8:00 PM EST completed eCW1 ([facility]) COVID-19 dose #1 given elsewhere Unspecified 04/10/2020 01:2 8:00 PM EST completed eCW1 ([facility]) COVID-19 VACCINE Moderna 04/10/2020 12:00:00 AM EST completed [employer] Vaccine Series Complete: NOThis Data was Submitted to [facility] Via [employer]. Influenza Virus Vaccine, Quadrivalent (Cciiv4), Derive d From Cell 11/27/2019 10:28:00 AM EDT completed [facility] ([facility]) Medications Medication Brand Name Start Date Product Form Dose Route Admi nistrative Instructions Pharmacy Instructions Status Indications Reaction Description Data Source(s) 100 mcg/0.5 mL 12/16/2020 12:00:00 AM EDT suspension 0 INJECT DIRECTED (THIRD DOSE) INJECT DIRECTED (THIRD DOSE) SOLD: 12/16/2020 [facility] Miconazole Nitrate 20 MG/ML Topical Cream Miconazole N itrate 2 % Miconazole Nitrate 2 % 09/14/2020 12:00:00 AM EDT 1.0 {application} active Miconazole Nitrate 2 % eCW1 ([facility]) Miconazole Nitrate 20 MG/ML Topical Cream Miconazole N itrate 2 % Miconazole Nitrate 2 % 09/14/2020 12:00:00 AM EDT 1.0 {application} active Miconazole Nitrate 2 % eCW1 ([facility]) Miconazole Nitrate 20 MG/ML Topical Cream Miconazole N itrate 2 % Miconazole Nitrate 2 % 09/14/2020 12:00:00 AM EDT 1.0 {application} active Miconazole Nitrate 2 % eCW1 ([facility]) Miconazole Nitrate 20 MG/ML Topical Cream Miconazole N itrate 2 % Miconazole Nitrate 2 % 09/14/2020 12:00:00 AM EDT 1.0 {application} active Miconazole Nitrate 2 % eCW1 ([facility]) Clindamycin 300 MG Oral Capsule Clindamycin HCL 08/21/2020 12:00:00 A M EDT active [facility] ([facility], ) Magic Mouth Wash 08/18/2020 12:00:00 AM EDT c ompleted MED[facility] ([facility]) valacyclovir 1000 MG Oral Tablet Valacyclovir HCL 08/18/2020 12:00: 00 AM EDT ORAL completed [facility] ([facility]) 3 ML Sodium Hyaluronate 10 MG/ML Prefilled Syringe [Gel-One] Gel-One 07/24/2020 12:00:00 AM EDT completed [facility] ([facility] ) Amoxicillin 875 MG / Clavulanate 125 MG Oral Tablet Am oxicillin/Clavulanate Potassium 06/27/2020 12:00:00 AM EDT ORAL completed [facility] ([facility]) Glucosamine Chondroitin Complex 03/23/2020 12:00:00 AM EST ORAL active [facility] ([facility]) solifenacin succinate 5 MG Oral Tablet [VESICARE] VESIcare 5 MG VESIcare 5 MG 02/11/2020 12:00:00 AM EST 1.0 {tablet} active VESIcare 5 MG eCW1 ([facility]) solifenacin succinate 5 MG Oral Tablet [VESICARE] VESIcare 5 MG VESIcare 5 MG 02/11/2020 12:00:00 AM EST 1.0 {tablet} active VESIcare 5 MG eCW1 ([facility]) solifenacin succinate 5 MG Oral Tablet [VESICARE] VESIcare 5 MG VESIcare 5 MG 02/11/2020 12:00:00 AM EST 1.0 {tablet} active VESIcare 5 MG eCW1 ([facility]) Oxybutynin chloride 5 MG Oral Tablet Oxybutynin Chlori de 5 MG Oxybutynin Chloride 5 MG 01/15/2020 12:00:00 AM EST 1.0 {tablet} active Oxybutynin Chloride 5 MG eCW1 ([facility]) Oxybutynin chloride 5 MG Oral Tablet Oxybutynin Chlori de 5 MG Oxybutynin Chloride 5 MG 01/15/2020 12:00:00 AM EST 1.0 {tablet} active Oxybutynin Chloride 5 MG eCW1 ([facility]) Oxybutynin chloride 5 MG Oral Tablet Oxybutynin Chlori de 5 MG Oxybutynin Chloride 5 MG 01/15/2020 12:00:00 AM EST 1.0 {tablet} active Oxybutynin Chloride 5 MG eCW1 ([facility]) Oxybutynin chloride 5 MG Oral Tablet Oxybutynin Chlori de 5 MG Oxybutynin Chloride 5 MG 01/15/2020 12:00:00 AM EST 1.0 {tablet} active Oxybutynin Chloride 5 MG eCW1 ([facility]) Sulfamethoxazole 800 MG / Trimethoprim 1 60 MG Oral Tablet [Bactrim] Bactrim DS 800-160 MG Bactrim DS 800-160 MG 12/03/2019 12:00:00 AM EDT 1.0 {table t} suspended Bactrim DS 800-160 MG eCW1 ( [facility]) Sulfamethoxazole 800 MG / Trimethoprim 1 60 MG Oral Tablet [Bactrim] Bactrim DS 800-160 MG Bactrim DS 800-160 MG 12/03/2019 12:00:00 AM EDT 1.0 {table t} suspended Bactrim DS 800-160 MG eCW1 ( [facility]) Sulfamethoxazole 800 MG / Trimethoprim 1 60 MG Oral Tablet [Bactrim] Bactrim DS 800-160 MG Bactrim DS 800-160 MG 12/03/2019 12:00:00 AM EDT 1.0 {table t} active Bactrim DS 800-160 MG eCW1 ( [facility]) Sulfamethoxazole 800 MG / Trimethoprim 1 60 MG Oral Tablet [Bactrim] Bactrim DS 800-160 MG Bactrim DS 800-160 MG 12/03/2019 12:00:00 AM EDT 1.0 {table t} suspended Bactrim DS 800-160 MG eCW1 ( [facility]) Sulfamethoxazole 800 MG / Trimethoprim 1 60 MG Oral Tablet [Bactrim] Bactrim DS 800-160 MG Bactrim DS 800-160 MG 12/03/2019 12:00:00 AM EDT 1.0 {table t} suspended Bactrim DS 800-160 MG eCW1 ( [facility]) Sulfamethoxazole 800 MG / Trimethoprim 1 60 MG Oral Tablet [Bactrim] Bactrim DS 800-160 MG Bactrim DS 800-160 MG 12/03/2019 12:00:00 AM EDT 1.0 {table t} suspended Bactrim DS 800-160 MG eCW1 ( [facility]) Insurance Providers Payer name Policy type / Coverage type Policy ID Covered green party ID Covered green party's relationship to purcell Policy Purcell Plan Information [place] [id number] Self 120 [id number] [place] Primary [id number] Self 120 [id number] [place] Medicare Primary [id number] Self 120 [id number] [place] Primary [id number] Self [id number] [place] Primary [id number] Self 120 [id number] Medicare Medicare Primary [id number] Self [place] Primary [id number] Self 120 [id number] [place] Primary [id number] Self 120 [id number] [place] Medicare Primary [id number] Self 120 [id number] [place] Medicare Primary [id number] Self 120 [id number] [place] Medicare Primary [id number] Self [id number] [place] Medicare Primary [id number] Self 120 [id number] [place] Medicare Primary [id number] Self 120 [id number] [place] Medicare Primary [id number] Self Medicare [place] Medicare Primary [id number] Self 120 [id number] MEDICARE [id number] Pilar [id number] A MEDICARE [id number] Pilar [id number] [id number] Medicare [place] Medicare Primary [id number] Self 120 [id number] [employer] Ins Medigap Part B [id number] Self [employer] (pr) Medigap Part B 1100 Self [employer] (pr) Medigap Part B [id number] Self [id number] COMMERCIAL GENERIC [id number] Pilar [id number] COMMERCIAL GENERIC [id number] Pilar [id number] [facility] [employer]. [id number] Self [id number] [place] Medicare Part B [id number] Self [id number] MEDICARE PI PI ANSI-Medicare Part B [id number] ANSI-Commercial [id number] COMMERCIAL GENERIC PI P I ANSI-Medicare Part B [id number] ANSI-Commercial [id number] Medicare (Part B) Medicare Primary [id number] Self 1 [id number] ANSI-Medicare Part B [id number] ANSI-Commercial [id number] Medicare (Part B) Medicare Primary [id number] Self 1 [id number] ANSI-Commercial [id number] ANSI-Medicare Part B [id number] Medicare (Part B) Medicare Primary [id number] Self 1 [id number] Medicare (Part B) Medicare Primary [id number] Self 1 [id number] [employer] MORMONISM [id number] SP [id number] MORMONISM COMPREHENSIVE TRUST [id number] SP [id number] Medicare (Part B) Medicare Primary [id number] Self 1 [id number] Medicare (Part B) Medicare Primary [id number] Self 1 [id number] [employer] Trust [facility] Part B [id number] Self Medicare [place]/NGS Medicare Primary [id number] Self Medicare (Part B) Medicare Primary [id number] Self [employer]/HBS [id number] SP [id number] MORMONISM COMPREHENSIVE [id number] SP [id number] [facility] [employer] O [id number] S [id number] MEDICARE C [id number] S [id number] A MORMONISM COMPREHENSIVE O [id number] S [id number] MEDICARE - [facility] [id number] S [id number] [facility] Medigap Part B [id number] Self [employer] HLTH SERV [id number] SP [id number] MORMONISM COMPREHENSIVE TRUST [id number] SP [id number] A MEDICARE [id number] SP [id number] SP [id number] Medicare Part B [facility] Other 0 [id number] Self 0 [employer] [id number] SP [id number] [employer] SERVICE [id number] SP [id number] ALLIED [employer] O [id number] S [id number] MEDICARE C [id number] S [id number] [id number] MEDICARE [id number] SP [id number] A [facility] IMPROVE. LEAGU O [id number] S [id number] [employer] [id number] SP [id number] MEDICARE [id number] SP [id number] [id number] Medicare (Part B) Medicare Primary [id number] Self [id number] Medicare (Part B) Medicare Primary [id number] Self [id number] [employer] [id number] SP [id number] ANSI-Medicare Part B [id number] ANSI-Commercial [id number] ANSI-Medicare Part B [id number] ANSI-Commercial [id number] ANSI-Commercial [id number] [facility]-Medicare Part B [id number] ANS-Commercial [id number] [facility] [id number] Medicare (Part B) Medicare Primary [id number] Self 1 [id number] Medicare (Part B) Medicare Primary [id number] Self 1 [id number] Medicare (Part B) Medicare Primary [id number] Self 1 [id number] Problems, Conditions, and Diagnoses Code Display Name Description Problem Type Effective Dates Data Source(s) Z22.7 [id number] Latent tuberculosis Problem 10/06/2020 12:00 :00 AM EDT eCW1 ([facility]) 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 [id number] Positive QuantiFERON-TB Gold test Problem 08/26/2020 12:00:00 AM EDT eCW1 ([facility]) L02.01 Cellulitis and abscess of face Cellulitis and abscess of face Problem 08/21/2020 12:00:00 AM EDT MEDENT ([facility], ) K11.3 Abscess of salivary gland Abscess of salivary gland Pr oblem 08/21/2020 12:00:00 AM EDT MEDENT ([facility], ) N40.1 Lower urinary tract symptoms due to mario gn prostatic hypertrophy Benign prostatic hyperplasia with lower urinary tract symptoms Problem 12/03/2019 12:00:00 AM EDT eCW1 ([facility]) Surgeries/Procedures Procedure Description Date Indications Data Source(s) ARTHROCENTESIS ASPIR&/INJECTION MAJOR JT/BURSA 12:00:00 AM EDT MEDENT ([facility]) OFFICE OUTPATIENT VISIT 15 MINUTES 12/04/2020 12:00:00 AM EDT MEDENT ([facility]) INTERROGATION EVAL IN PERSON 1/DUAL/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 LEAD PM 2020 12:00:00 AM EDT MEDENT ([facility]) ECG ROUTINE ECG W/LEAST 12 LDS W/I&R 09/21/2020 12:00: 00 AM EDT MEDENT ([facility]) OFFICE OUTPATIENT VISIT 25 MINUTES 09/21/2020 12:00:00 AM EDT MEDENT ([facility]) OFFICE OUTPATIENT VISIT 10 MINUTES 08/27/2020 12:00:00 AM EDT MEDENT ([facility], ) OFFICE OUTPATIENT VISIT 15 MINUTES 08/24/2020 12:00:00 AM EDT MEDENT ([facility]) OFFICE OUTPATIENT VISIT 25 MINUTES 08/21/2020 12:00:00 AM EDT MEDENT ([facility]) OFFICE OUTPATIENT VISIT 15 MINUTES 08/18/2020 12:00:00 AM EDT MEDENT ([facility], [facility]) ARTHROCENTESIS ASPIR&/INJECTION MAJOR JT/BURSA 12:00:00 AM EDT MEDENT ([facility]) OFFICE OUTPATIENT VISIT 15 MINUTES 06/27/2020 12:00:00 AM EDT MEDENT ([facility], [facility]) ARTHROCENTESIS ASPIR&/INJECTION MAJOR JT/BURSA 12:00:00 AM EDT MEDENT ([facility]) RADIOLOGIC EXAM KNEE COMPLETE 4/MORE VIEWS 06/04/2020 12:00:00 AM EDT MEDENT ([facility]) OFFICE OUTPATIENT VISIT 25 MINUTES 06/04/2020 12:00:00 AM EDT MEDENT ([facility]) RADIOLOGIC EXAM KNEE COMPLETE 4/MORE VIEWS 06/04/2020 12:00:00 AM EDT MEDENT ([facility]) INTERROGATION EVAL IN PERSON 1/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/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 LEAD PM 2020 12:00:00 AM EDT MEDENT ([facility]) INJECTION 1 TENDON SHEATH/LIGAMENT APONEUROSIS 021 12:00:00 AM EST MEDENT ([facility]) RADEX SHOULDER COMPLETE MINIMUM 2 VIEWS 04/13/2020 12: 00:00 AM EST MEDENT ([facility]) OFFICE OUTPATIENT VISIT 25 MINUTES 04/13/2020 12:00:00 AM EST MEDENT ([facility]) RADEX SHOULDER COMPLETE MINIMUM 2 VIEWS 04/13/2020 12: 00:00 AM EST MEDENT ([facility]) RADEX SHOULDER COMPLETE MINIMUM 2 VIEWS 04/13/2020 12: 00:00 AM EST MEDENT ([facility]) ECG ROUTINE ECG W/LEAST 12 LDS W/I&R 03/24/2020 12:00: 00 AM EST MEDENT ([facility]) OFFICE OUTPATIENT VISIT 25 MINUTES 03/24/2020 12:00:00 AM EST MEDENT ([facility]) ARTHROCENTESIS ASPIR&/INJECTION MAJOR JT/BURSA 020 12:00:00 AM EST MEDENT ([facility]) uro PVR (Post Voiding Residual) Bladder Scan 0 12:00:00 AM EST eCW1 ([facility]) Medication: Lidocaine HCl 2% Jelly 5mL Intravesically 12/18/2019 12:00:00 AM EST eCW1 ([facility]) Results ID Date Data Source [id number] 10/18/2020 11:30:00 AM EDT [facility] Name Value Range Interpretation Code Description Data Maryse rce(s) Supporting Document(s) SARS-CoV-2 RNA Resp Ql LORENA+probe NOT DETECTED [facility] This lab was ordered by FATIMAH ortega and reported by FATIMAH Lowery. ID Date Data Source [id number] 08/28/2020 12:28:00 PM EDT MEDENT ([facility]) Name Value Range Interpretation Code Description Data Maryse rce(s) Supporting Document(s) Cholesterol 146 MEDENT ([facility]) Triglycerides 94 MEDENT ([facility]) Cholesterol in LDL [Mass/volume] in Serum or Plasma by calculation 81 MEDENT ([facility]) HDL 46 MEDENT ([facility]) Chol/HDL Ratio 3.173 MEDENT ([facility]) ID Date Data Source [id number] 08/28/2020 12:28:00 PM EDT MEDENT ([facility]) Name Value Range Interpretation Code Description Data Maryse rce(s) Supporting Document(s) Albumin [Mass/volume] in Serum or Plasma 3.3 MEDENT ([facility]) Carbon dioxide, total [Moles/volume] in Serum or Plasma 29 MEDENT ([facility]) Alanine aminotransferase [Enzymatic activity/volume] in Serum or Pl asma 18 MEDENT ([facility]) Calcium [Mass/volume] in Serum or Plasma 9.0 MEDENT ([facility]) Chloride [Moles/volume] in Serum or Plasma 107 MEDENT ([facility]) Alkaline phosphatase [Enzymatic activity/volume] in Serum or Plasma 5 4 MEDENT ([facility]) Sodium 140 MEDENT ([facility]) Potassium [Moles/volume] in Serum or Plasma 4.4 MEDENT ([facility]) Protein [Mass/volume] in Serum or Plasma 6.6 MEDENT ([facility]) Urea nitrogen [Mass/volume] in Serum or Plasma 17 MEDENT ([facility]) Aspartate aminotransferase [Enzymatic activity/volume] in Serum or Plasma 13 MEDENT ([facility]) Creatinine For GFR 0.93 MEDENT ([facility]) Glucose 86 83-110 MEDENT ([facility]) ID Date Data Source MAGNESIUM LEVEL 03/16/2020 12:00:00 AM EST eCW1 (On license of [facility]) Name Value Range Interpretation Code Description Data Maryse rce(s) Supporting Document(s) 2.3 1.8-2.4 MAGNESIUM LEVEL W1 (Replaced by [facility]) ID Date Data Source Comprehensive Metabolic Profile (CMP) 03/16/2020 12:00:00 AM EST eCW1 ([facility]) Name Value Range Interpretation Code Description Data Maryse rce(s) Supporting Document(s) 0.99 0.70-1.30 CREATININE FOR GFR eCW1 ([facility]) 81 70-100 GLUCOSE, FASTING eCW1 (On license of [facility]) 21 7-18 BLOOD UREA NITROGEN eCW1 ([facility]) > 60.0 >35 GLOMERULAR FILTRATION RATE eCW 1 ([facility]) 106 98-107 CHLORIDE LEVEL eCW1 ([facility]) 5.0 3.5-5.1 POTASSIUM SERUM eCW1 (Replaced by [facility]) 141 136-145 SODIUM LEVEL eCW1 ([facility]) 30 21-32 CARBON DIOXIDE LEVEL eCW1 ([facility]) 9.2 8.8-10.2 CALCIUM LEVEL eCW1 ([facility]) 13 7-37 AST/SGOT eCW1 ([facility]) 19 12-78 ALT/SGPT eCW1 ([facility]) 0.5 0.2-1.0 BILIRUBIN,TOTAL eCW1 (Replaced by [facility]) 53 45-117 ALKALINE PHOSPHATASE eCW1 ([facility]) 3.5 3.2-5.2 ALBUMIN eCW1 ([facility]) 7.0 6.4-8.2 TOTAL PROTEIN eCW1 ([facility]) 1.0 ALBUMIN/GLOBULIN RATIO eCW1 ([facility]) ID Date Data Source CBC - Complete Blood Count 03/16/2020 12:00:00 AM EST eCW1 ( [facility]) Name Value Range Interpretation Code Description Data Maryse rce(s) Supporting Document(s) 45.1 42.0-52.0 HEMATOCRIT eCW1 ([facility]) 4.71 4.30-6.10 RED BLOOD COUNT eCW1 (Replaced by [facility]) 14.5 13.5-17.5 HEMOGLOBIN eCW1 ([facility]) 7.6 4.0-10.0 WHITE BLOOD COUNT eCW1 ([facility]) 95.8 80.0-96.0 MEAN CORPUSCULAR VOLUME e CW1 ([facility]) 30.8 27.0-33.0 MEAN CORPUSCULAR HEMOGLOB IN eCW1 ([facility]) 12.9 11.5-14.5 RED CELL DISTRIBUTION WID TH eCW1 ([facility]) 32.2 32.0-36.5 MEAN CORPUSCULAR HGB CONC eCW1 ([facility]) 306 150-450 PLATELET COUNT, AUTOMATED eCW1 ([facility]) Procedure Social History Code Duration Value Status Description Data Source(s ) Smoking 01/14/2021 07:22:49 PM EST Ex-smoker (finding) complet ed Ex-smoker (finding) ANIKET (Uriel Recinos MD [facility]) Smoking 10/06/2020 12:00:00 AM EDT Never Smoker completed Never S moker eCW1 ([facility]) Smoking 09/21/2020 12:00:00 AM EDT Patient has never smoked co mpleted Patient has never smoked MEDENT ([facility]) Smoking 09/14/2020 12:00:00 AM EDT Never Smoker completed Never S moker eCW1 ([facility]) Smoking 09/14/2020 12:00:00 AM EDT Never Smoker completed Never S moker eCW1 ([facility]) Smoking 09/14/2020 12:00:00 AM EDT Never Smoker completed Never S moker eCW1 ([facility]) Smoking 08/18/2020 12:00:00 AM EDT Patient is a former smoker completed Patient is a former smoker [facility] Smoking 03/15/2020 12:00:00 AM EST Never Smoker completed Never S moker eCW1 ([facility]) Smoking 03/15/2020 12:00:00 AM EST Never Smoker completed Never S moker eCW1 ([facility]) Smoking 03/15/2020 12:00:00 AM EST Never Smoker completed Never S moker eCW1 ([facility]) Smoking 02/11/2020 12:00:00 AM EST Never Smoker completed Never S moker eCW1 ([facility]) Smoking 02/11/2020 12:00:00 AM EST Never Smoker completed Never S moker eCW1 ([facility]) Smoking 02/11/2020 12:00:00 AM EST Never Smoker completed Never S moker eCW1 ([facility]) Smoking 01/15/2020 12:00:00 AM EST Never Smoker completed Never S moker eCW1 ([facility]) Smoking 12/18/2019 12:00:00 AM EST Never Smoker completed Never S moker eCW1 ([facility]) Smoking 12/03/2019 12:00:00 AM EDT Never Smoker completed Never S moker eCW1 ([facility]) Vital Signs ID Date Data Source UNK Name Value Range Interpretation Code Description Data Source(s) Body weight 238 [lb_av] 238 [lb_av] eCW1 ([facility]) Body weight 107.96 kg 107.96 kg eCW1 (On license of [facility]) Body height 73 [in_i] 73 [in_i] eCW1 (On license of [facility]) Body mass index (BMI) [Ratio] 31.40 kg/m2 31.40 kg/m2 eCW1 ([facility]) Heart rate 74 /min 74 /min eCW1 (Replaced by [facility]) Respiratory rate 16 /min 16 /min eCW1 ([facility]) Body temperature 97.8 [degF] 97.8 [degF] eCW1 ( [facility]) Systolic blood pressure 144 mm[Hg] 144 mm[Hg] e CW1 ([facility]) Diastolic blood pressure 72 mm[Hg] 72 mm[Hg] eCW1 ([facility]) Body weight 240.00 [lb_av] 240.00 [lb_av] MEDEN T ([facility]) Body mass index (BMI) [Ratio] 30.8 kg/m2 30.8 k g/m2 MEDENT ([facility]) Heart rate 76 /min 76 /min MEDENT ([facility]) Regular Respiratory rate 16 /min 16 /min MEDENT ( [facility]) Body height 74 [in_i] 74 [in_i] MEDENT ([facility]) 6'2" Systolic blood pressure 132 mm[Hg] 132 mm[Hg] M EDENT ([facility]) sitting, regular cuff Diastolic blood pressure 74 mm[Hg] 74 mm[Hg] MEDENT ([facility]) sitting, regular cuff Systolic blood pressure 128 mm[Hg] 128 mm[Hg] M EDENT ([facility]) sitting Diastolic blood pressure 74 mm[Hg] 74 mm[Hg] MEDENT ([facility]) sitting Body weight 240.4 [lb_av] 240.4 [lb_av] eCW1 ([facility]) Body height 73 [in_i] 73 [in_i] eCW1 (On license of [facility]) Body mass index (BMI) [Ratio] 31.71 kg/m2 31.71 kg/m2 eCW1 ([facility]) Heart rate 55 /min 55 /min eCW1 (Replaced by [facility]) Respiratory rate 18 /min 18 /min eCW1 ([facility]) Body temperature 97.5 [degF] 97.5 [degF] eCW1 ( [facility]) Systolic blood pressure 136 mm[Hg] 136 mm[Hg] e CW1 ([facility]) Diastolic blood pressure 70 mm[Hg] 70 mm[Hg] eCW1 ([facility]) Body height 74 [in_i] 74 [in_i] MEDENT ([facility], ) 6'2" Body weight 240.00 [lb_av] 240.00 [lb_av] MEDEN T ([facility], ) Body mass index (BMI) [Ratio] 30.8 kg/m2 30.8 k g/m2 [facility], [facility] [place] body weight 190 [lb_av] 190 [lb_av] MEDEN T ([facility], ) Body weight 108.864 kg 108.864 kg MEDENT ([facility]) Body surface area Derived from formula 2.35 m2 2.35 m2 MEDENT ([facility]) Body height 74 [in_i] 74 [in_i] MEDENT ([facility]) 6'2" Body weight 240.00 [lb_av] 240.00 [lb_av] MEDEN T ([facility]) Body surface area Derived from formula 2.35 m2 2.35 m2 [facility] ([facility]) Body mass index (BMI) [Ratio] 30.8 kg/m2 30.8 k g/m2 [facility] ([facility]) [place] body weight 190 [lb_av] 190 [lb_av] MEDEN T ([facility]) Body weight 108.864 kg 108.864 kg [facility] ([facility]) [place] body weight 190 [lb_av] 190 [lb_av] [facility] ([facility]) Body height 74 [in_i] 74 [in_i] [facility] ([facility]) 6'2" Body weight 240.00 [lb_av] 240.00 [lb_av] [facility] ([facility]) Body mass index (BMI) [Ratio] 30.8 kg/m2 30.8 k g/m2 [facility] ([facility]) Body weight 108.864 kg 108.864 kg [facility] ([facility]) Body surface area Derived from formula 2.35 m2 2.35 m2 [facility] ([facility]) Body weight 107.957 kg 107.957 kg [facility] ([facility]) Body surface area Derived from formula 2.34 m2 2.34 m2 [facility] ([facility]) Systolic blood pressure 140 mm[Hg] 140 mm[Hg] [facility] Diastolic blood pressure 80 mm[Hg] 80 mm[Hg] [facility] ([facility]) Heart rate 70 /min 70 /min [facility] ([facility]) Oxygen saturation in Arterial blood by Pulse oximetry 99 % 99 % [facility] Body height 74 [in_i] 74 [in_i] [facility] 6'2" Body weight 238.00 [lb_av] 238.00 [lb_av] [facility] ([facility]) Body mass index (BMI) [Ratio] 30.6 kg/m2 30.6 k g/m2 [facility] ([facility]) [place] body weight 190 [lb_av] 190 [lb_av] [facility] ([facility]) Heart rate 67 /min 67 /min [facility], [facility]) Systolic blood pressure 156 mm[Hg] 156 mm[Hg] [facility] ([facility], [facility]) Diastolic blood pressure 70 mm[Hg] 70 mm[Hg] [facility] ([facility], [facility]) Respiratory rate 18 /min 18 /min [facility] ( [facility], [facility]) Oxygen saturation in Arterial blood by Pulse oximetry 97 % 97 % [facility] ([facility], [facility]) Body temperature 98.1 [degF] 98.1 [degF] [facility] ([facility], [facility]) Body weight 228.00 [lb_av] 228.00 [lb_av] [facility] ([facility], [facility]) Body height 74 [in_i] 74 [in_i] [facility] ([facility], [facility]) 6'2" Body mass index (BMI) [Ratio] 29.3 kg/m2 29.3 k g/m2 [facility] ([facility], [facility]) Systolic blood pressure 171 mm[Hg] 171 mm[Hg] [facility] ([facility], [facility]) Diastolic blood pressure 79 mm[Hg] 79 mm[Hg] [facility] ([facility], [facility]) Heart rate 71 /min 71 /min [facility] ([facility], [facility]) Respiratory rate 16 /min 16 /min [facility] ( [facility], [facility]) Oxygen saturation in Arterial blood by Pulse oximetry 96 % 96 % [facility] ([facility], [facility]) Body temperature 96.9 [degF] 96.9 [degF] [facility] ([facility], [facility]) Body weight 228.00 [lb_av] 228.00 [lb_av] [facility] ([facility], [facility]) Body height 74 [in_i] 74 [in_i] [facility] ([facility], [facility]) 6'2" Body mass index (BMI) [Ratio] 29.3 kg/m2 29.3 k g/m2 [facility] ([facility], [facility]) Body mass index (BMI) [Ratio] 30.9 kg/m2 30.9 k g/m2 [facility] ([facility]) Body temperature 97.5 [degF] 97.5 [degF] [facility] ([facility]) Body height 73 [in_i] 73 [in_i] [facility] ([facility]) 6'1" Body weight 234.12 [lb_av] 234.12 [lb_av] [facility] ([facility]) Heart rate 72 /min 72 /min [facility] ([facility]) Regular Respiratory rate 16 /min 16 /min [facility] ( [facility]) Body mass index (BMI) [Ratio] 30.6 kg/m2 30.6 k g/m2 [facility] ([facility]) Systolic blood pressure 126 mm[Hg] 126 mm[Hg] M EDENT ([facility]) sitting, regular cuff Diastolic blood pressure 74 mm[Hg] 74 mm[Hg] [facility] ([facility]) sitting, regular cuff Systolic blood pressure 126 mm[Hg] 126 mm[Hg] M [facility]ENT ([facility]) sitting Diastolic blood pressure 70 mm[Hg] 70 mm[Hg] [facility] ([facility]) sitting Body weight 238.00 [lb_av] 238.00 [lb_av] [facility] ([facility]) Body height 74 [in_i] 74 [in_i] [facility] ([facility]) 6'2" Body weight 240.6 [lb_av] 240.6 [lb_av] eCW1 ([facility]) Body height 73 [in_i] 73 [in_i] eCW1 (On license of [facility]) Body mass index (BMI) [Ratio] 31.74 kg/m2 31.74 kg/m2 eCW1 ([facility]) Heart rate 66 /min 66 /min eCW1 (Replaced by [facility]) Respiratory rate 18 /min 18 /min eCW1 ([facility]) Body temperature 97.7 [degF] 97.7 [degF] eCW1 ( [facility]) Systolic blood pressure 132 mm[Hg] 132 mm[Hg] e CW1 ([facility]) Diastolic blood pressure 70 mm[Hg] 70 mm[Hg] eCW1 ([facility]) Body height 73 [in_i] 73 [in_i] eCW1 (On license of [facility]) Body weight 235 [lb_av] 235 [lb_av] eCW1 ([facility]) Body mass index (BMI) [Ratio] 31.00 kg/m2 31.00 kg/m2 eCW1 ([facility]) Heart rate 69 /min 69 /min eCW1 (Replaced by [facility]) Respiratory rate 18 /min 18 /min eCW1 ([facility]) Body temperature 96.6 [degF] 96.6 [degF] eCW1 ( [facility]) Systolic blood pressure 142 mm[Hg] 142 mm[Hg] e CW1 ([facility]) Diastolic blood pressure 78 mm[Hg] 78 mm[Hg] eCW1 ([facility]) Body weight 237 [lb_av] 237 [lb_av] eCW1 ([facility]) Body height 73 [in_i] 73 [in_i] eCW1 (On license of [facility]) Body mass index (BMI) [Ratio] 31.26 kg/m2 31.26 kg/m2 eCW1 ([facility]) Heart rate 74 /min 74 /min eCW1 (Replaced by [facility]) Respiratory rate 18 /min 18 /min eCW1 ([facility]) Body temperature 97.2 [degF] 97.2 [degF] eCW1 ( [facility]) Systolic blood pressure 142 mm[Hg] 142 mm[Hg] e CW1 ([facility]) Diastolic blood pressure 72 mm[Hg] 72 mm[Hg] eCW1 ([facility]) Body weight 236 [lb_av] 236 [lb_av] eCW1 ([facility]) Body height 73 [in_i] 73 [in_i] eCW1 (On license of [facility]) Body mass index (BMI) [Ratio] 31.13 kg/m2 31.13 kg/m2 eCW1 ([facility]) Heart rate 78 /min 78 /min eCW1 (Replaced by [facility]) Respiratory rate 18 /min 18 /min eCW1 ([facility]) Body temperature 96.7 [degF] 96.7 [degF] eCW1 ( [facility]) Systolic blood pressure 132 mm[Hg] 132 mm[Hg] e CW1 ([facility]) Diastolic blood pressure mm[Hg] eCW1 ([facility]) Body mass index (BMI) [Ratio] 31.40 kg/m2 31.40 kg/m2 eCW1 ([facility]) Respiratory rate 18 /min 18 /min eCW1 ([facility]) Body temperature 97.8 [degF] 97.8 [degF] eCW1 ( [facility]) Systolic blood pressure 150 mm[Hg] 150 mm[Hg] e CW1 ([facility]) Diastolic blood pressure 76 mm[Hg] 76 mm[Hg] eCW1 ([facility]) Heart rate 55 /min 55 /min eCW1 (Replaced by [facility]) Body weight 238 [lb_av] 238 [lb_av] eCW1 ([facility]) Body height 73 [in_i] 73 [in_i] eCW1 (On license of [facility]) Patient Treatment Plan of Care Planned Activity Planned Date Details Description Data Source (s) Miconazole Nitrate 20 MG/ML Topical Cream 09/14/2020 12:00:00 AM ED T eCW1 ([facility]) Miconazole Nitrate 20 MG/ML Topical Cream 09/14/2020 12:00:00 AM ED T eCW1 ([facility]) Miconazole Nitrate 20 MG/ML Topical Cream 09/14/2020 12:00:00 AM ED T eCW1 ([facility]) solifenacin succinate 5 MG Oral Tablet [[facility]] 02/11/2020 12: 00:00 AM EST eCW1 ([facility]) solifenacin succinate 5 MG Oral Tablet [[facility]ICARE] 02/11/2020 12: 00:00 AM EST eCW1 ([facility]) solifenacin succinate 5 MG Oral Tablet [[facility]ICARE] 02/11/2020 12: 00:00 AM EST eCW1 ([facility]) Oxybutynin chloride 5 MG Oral Tablet 01/15/2020 12:00:00 AM EST eCW1 ([facility]) Sulfamethoxazole 800 MG / Trimethoprim 160 MG Oral Tab let [Bactrim] 12/03/2019 12:00:00 AM EDT eCW1 ([facility])
--- OUTSIDE RECORDS SUMMARY | 2021-01-17 13:29 | CCD | Continuity of Care Document ---
Author Author Prem BLUE PA-C Organization Unknown Address [address] [place] [address], [place] [address] Phone [phone] Care Team Providers Care [employer] Name Role Phone Gen Caldera MD [facility] [phone] Helen Murphy NP [facility] [phone] Macario Bonner MD [facility] [phone] Problems Active Problems Provider Date Paroxysmal atrial [...] Test Result H/L Range Note CMP 08/28/2020 [facility] - not interfaced (315)- - Albumin Serum/Plasma 3.3 Alt - SGPT 18 Calcium Ser/Plasma Mass/Vol 9.0 Carbon Dioxide Ser/Plasm 29 Chloride Serum/Plasma 107 Alkaline Phosphatase 54 Potassium 4.4 Protein Total 6.6 Sodium 140 Ast - Sgot 13 BUN - Urea Nitrogen 17 Glucose 86 83-110 Creatinine For GFR 0.93 Lipid Profile/Cardiac Risk Pro 08/28/2020 [facility] - not interfaced (315)- - Triglycerides 94 <150 Cholesterol 146 <200 HDL 46 >40.0 LDL Cholesterol 81 Chol/HDL Ratio 3.173 <5 Procedures Date Code Description Status 11/19/2020 33125 Pacer Interrogation Any Leads Co mpleted 09/21/2020 24330 Office/Outpatient Established Mo d MDM 30-39 Min Completed 09/21/2020 94186 ECG 12-Lead Completed Medical Devices Description No [...]
[2021-01-17] MEDS ORDERED: METAL LOCK LOOP XX ONE (14:33)
[2021-01-17] MEDS ORDERED: AMOX500T2 PO (14:53)
--- OUTSIDE RECORDS SUMMARY | 2021-01-17 15:18 | CCD ---
Author Author [facility] Organization [facility] Address Unknown Phone Unavailable Care Team Providers Care Polisher Eyeglass Frames Name Role Phone Faustina Berumen NP Unavailable Unavailable Faustina Berumen NP Unavailable Unavailable Faustina Berumen NP Unavailable Unavailable Faustina Berumen NP Unavailable Unavailable Faustina Berumen LIBRARY TECHNICAL ASSISTANT Unavailable Unavailable Berumen, Faustina LIBRARY TECHNICAL ASSISTANT Unavailable Unavailable Berumen, Faustina LIBRARY TECHNICAL ASSISTANT Unavailable Unavailable Berumen, Faustina LIBRARY TECHNICAL ASSISTANT Unavailable Unavailable Berumen, Faustina LIBRARY TECHNICAL ASSISTANT Unavailable Unavailable Berumen, Faustina LIBRARY TECHNICAL ASSISTANT Unavailable Unavailable Berumen, Faustina LIBRARY TECHNICAL ASSISTANT Unavailable Unavailable Berumen, Faustina LIBRARY TECHNICAL ASSISTANT Unavailable Unavailable Berumen, Faustina LIBRARY TECHNICAL ASSISTANT Unavailable Unavailable Symenow, Deloris Brooklynn PA Unavailable Unavailable Symenow, Deloris Brooklynn PA Unavailable Unavailable Symenow, Deloris Brooklynn PA Unavailable Unavailable Symenow, Deloris Brooklynn PA Unavailable Unavailable Symenow, Deloris Brooklynn PA Unavailable Unavailable Symenow, Deloris Brooklynn PA Unavailable Unavailable Symenow, Deloris Brooklynn PA Unavailable Unavailable Symenow, Deloris Brooklynn PA Unavailable Unavailable Symenow, Deloris Brooklynn PA Unavailable Unavailable Symenow, Delorsi Brooklynn PA Unavailable Unavailable Symenow, Deloris Brooklynn [...] Unavailable Symenow, Deloris Brooklynn PA Unavailable Unavailable CoxsackieKhurram MD Unavailable Unavailable CoxsackieKhurram MD Unavailable Unavailable CoxsackieKhurram MD Unavailable Unavailable Coxsackie, Khurram MD Unavailable Unavailable CoxsackieKhurram MD Unavailable Unavailable CoxsackieKhurram MD Unavailable Unavailable Coxsackie, Khurram MD Unavailable Unavailable Coxsackie, Khurram MD Unavailable Unavailable Coxsackie, Khurram MD Unavailable Unavailable Coxsackie, Khurram MD Unavailable Unavailable Coxsackie, Khurram MD Unavailable Unavailable Coxsackie, Khurram MD Unavailable Unavailable Coxsackie, Khurram MD Unavailable Unavailable Coxsackie, Khurram MD Unavailable Unavailable Coxsackie Khurram MD Unavailable Unavailable Coxsackie Khurram MD Unavailable Unavailable Coxsackie Khurram MD Unavailable Unavailable CoxsackieKhurram MD Unavailable Unavailable Coxsackie, Khurram MD Unavailable Unavailable Coxsackie, Khurram MD Unavailable Unavailable Coxsackie, Khurram MD Unavailable Unavailable Coxsackie, Khurram MD Unavailable Unavailable Coxsackie, Khurram MD Unavailable Unavailable Coxsackie, Khurram MD Unavailable Unavailable Coxsackie, Khurram MD Unavailable Unavailable Coxsackie, Khurram MD Unavailable Unavailable Coxsackie, Khurram MD Unavailable Unavailable Coxsackie, Khurram MD Unavailable Unavailable Coxsackie, Khurram MD Unavailable Unavailable Coxsackie, Khurram MD Unavailable Unavailable Coxsackie, Khurram MD Unavailable Unavailable DRAZEK, I VIPIN [...] Giselle Sorto MD Unavailable Unavailable Vaneenenaam, Giselle Sroto MD Unavailable Unavailable Vaneenenaam, Giselle Sorto MD [...] Isael, Whitney Trevino PH.D., M.D. Unavailable Unavailable Siael, Whitney Trevino PH.D., M.D. Unavailable Unavailable Isael, [...] Isael, C Uriel PH.D., M.D. Unavailable Unavailable Re-disclosure Warning The [...] is protected by Article 27-F of the [facility] Public Health law. If you continue you may have access to information: Regarding HIV / AIDS; Provided by facilities licensed or operated by the [facility] Office of Mental Health; or Provided by the [facility] Office for People With Developmental Disabilities. If such information is present, then the following [facility] mandated warning applies: This information [...] law may result in a fine or senior living sentence or both. A general authorization for the release of medical or other information is NOT sufficient authorization for further disc losure. Family History Family Member Name Family Member Gender Family Member Status Date o f Status Description Data Source(s) Unknown Female Problem MEDENT ([facility], ) Unknown Female Problem MEDENT ([facility], ) Unknown Female Problem MEDENT ([facility], ) Encounters Encounter Providers Location Date Indications Data Source(s ) OFFICE OUTPATIENT VISIT 15 MINUTES Attender: VIPIN PENA Phys ical Therapy 12/04/2020 02:00:00 PM EDT MED[facility] ([facility] ) Outpatient Attender: Anival Mancia PA-C 06/2020 11:13:41 AM EDT - 10/18/2020 12:13:34 PM EDT [facility] ([facility] ) [place] [address] [facility] [address] 10/06/2020 12:00:00 AM EDT eCW1 ([facility]) Outpatient Attender: Brooklynn PENA Main Office 09/21/2020 10:15:00 AM EDT [facility] ([facility]) [place] [address] [facility] [address] 09/15/2020 12:00:00 AM EDT eCW1 ([facility]) [place] [address] [facility] [address] 09/14/2020 12:00:00 AM EDT eCW1 ([facility]) Unknown [address] [facility] [address] 09/14/2020 12:00:00 AM EDT eCW1 ([facility]) [place] [address] [address] 08/28/2020 12:00:00 AM EDT eCW1 ([facility]) Outpatient Attender: Khurram Shankar/Marc/Skyler/Danishad l 08/27/2020 03:30:00 PM EDT MED[facility] ([facility], ) [place] [address] [facility] [address] 08/26/2020 12:00:00 AM EDT eCW1 ([facility]) Outpatient Attender: Khurram Shankar/Marc/Skyler/Danishad l 08/24/2020 01:30:00 PM EDT MEDENT ([facility] Outpatient Attender: Uriel Kirkland PH.D., M.D. Raad/Marc/Scooter bangura/Jena 08/21/2020 01:15:00 PM EDT MEDENT ([facility], ) Outpatient Attender: Faustina Marmolejo umm 08/18/2020 09:35:00 AM EDT MED[facility] ([facility] Office Visit Attender: VIPIN PENA Physical Therapy 2020 01:15:00 PM EDT MEDENT ([facility] ) Outpatient Attender: Faustina salomon 06/27/2020 03:40:00 PM EDT MED[facility] ([facility]) Outpatient Attender: VIPIN PENA Physical Therapy 06/04/2020 0 2:00:00 PM EDT MEDENT ([facility] ) Outpatient Attender: Giselle Bonner MD Physical Therap y 04/13/2020 09:15:00 AM EST MEDENT ([facility] ) Outpatient Attender: Brooklynn PENA Main Office 03/24/2020 09:45:00 AM EST [facility] ([facility]) [place] [address] [facility] [facility] [address] 03/16/2020 12:00:00 AM EST eCW1 ([facility]) [place] [address] [facility] [place] [address] 03/09/2020 12:00:00 AM EST eCW1 ([facility]) Unknown [address] [facility] [facility] [address] 02/20/2020 12:00:00 AM EST eCW1 ([facility]) Outpatient [address] [facility] [place] [address] 02/11/2020 12:00:00 AM EST eCW1 ([facility]) Outpatient [address] [facility] [place] [address] 01/15/2020 12:00:00 AM EST eCW1 ([facility]) (Cysto1) Urology [address] [place] [address] 12/18/2019 12:00:00 AM EST eCW1 ([facility]) Outpatient [address] [facility] [place] [address] 12/03/2019 12:00:00 AM EDT eCW1 ([facility]) Immunizations Vaccine Date Status Description Data Source(s) Influenza Virus Vaccine, Quadrivalent (Cciiv4), Derive d From Cell 12/30/2020 09:55:00 AM EST completed MEDENT ([facility]) COVID-19 VACCINE Moderna 12/16/2020 12:00:00 AM EDT completed [facility]IS Vaccine Series Complete: YESThis Data wa s Submitted to [facility] Via NYSIIS. COVID-19 dose #2 given elsewhere Unspecified 05/05/2020 01:2 8:00 PM EDT completed eCW1 ([facility]) COVID-19 dose #2 given elsewhere Unspecified 05/05/2020 01:2 8:00 PM EDT completed eCW1 ([facility]) COVID-19 dose #2 given elsewhere Unspecified 05/05/2020 01:2 8:00 PM EDT completed eCW1 ([facility]) COVID-19 dose #2 given elsewhere Unspecified 05/05/2020 01:2 8:00 PM EDT completed eCW1 ([facility]) COVID-19 VACCINE Moderna 05/05/2020 12:00:00 AM EDT completed [facility]SIIS Vaccine Series Complete: YESThis Data wa s Submitted to [facility] Via Techoz. COVID-19 dose #1 given elsewhere Unspecified 04/10/2020 01:2 8:00 PM EST completed eCW1 ([facility]) COVID-19 dose #1 given elsewhere Unspecified 04/10/2020 01:2 8:00 PM EST completed eCW1 ([facility]) COVID-19 dose #1 given elsewhere Unspecified 04/10/2020 01:2 8:00 PM EST completed eCW1 ([facility]) COVID-19 dose #1 given elsewhere Unspecified 04/10/2020 01:2 8:00 PM EST completed eCW1 ([facility]) COVID-19 VACCINE Moderna 04/10/2020 12:00:00 AM EST completed [facility]IS Vaccine Series Complete: NOThis Data was Submitted to [facility] Via [employer]choz. Influenza Virus Vaccine, Quadrivalent (Cciiv4), Derive d From Cell 11/27/2019 10:28:00 AM EDT completed MEDENT ([facility]) Medications Medication Brand Name Start Date Product Form Dose Route Admi nistrative Instructions Pharmacy Instructions Status Indications Reaction Description Data Source(s) 100 mcg/0.5 mL 12/16/2020 12:00:00 AM EDT suspension 0 INJECT DIRECTED (THIRD DOSE) INJECT DIRECTED (THIRD DOSE) SOLD: 12/16/2020 [facility] Miconazole Nitrate 20 MG/ML Topical Cream Miconazole N itrate 2 % Miconazole Nitrate 2 % 09/14/2020 12:00:00 AM EDT 1.0 {application} active Miconazole Nitrate 2 % eCW1 ([facility]) Miconazole Nitrate 20 MG/ML Topical Cream Miconazole N itrate 2 % Miconazole Nitrate 2 % 09/14/2020 12:00:00 AM EDT 1.0 {application} active Miconazole Nitrate 2 % eCW1 ([facility]) Miconazole Nitrate 20 MG/ML Topical Cream Miconazole N itrate 2 % Miconazole Nitrate 2 % 09/14/2020 12:00:00 AM EDT 1.0 {application} active Miconazole Nitrate 2 % eCW1 ([facility]) Miconazole Nitrate 20 MG/ML Topical Cream Miconazole N itrate 2 % Miconazole Nitrate 2 % 09/14/2020 12:00:00 AM EDT 1.0 {application} active Miconazole Nitrate 2 % eCW1 ([facility]) Clindamycin 300 MG Oral Capsule Clindamycin HCL 08/21/2020 12:00:00 A M EDT active MEDENT ([facility]) Magic Mouth Wash 08/18/2020 12:00:00 AM EDT c ompleted MEDENT ([facility]) valacyclovir 1000 MG Oral Tablet Valacyclovir HCL 08/18/2020 12:00: 00 AM EDT ORAL completed MEDENT ([facility]) 3 ML Sodium Hyaluronate 10 MG/ML Prefilled Syringe [Gel-One] Gel-One 07/24/2020 12:00:00 AM EDT completed MEDENT ([facility] ) Amoxicillin 875 MG / Clavulanate 125 MG Oral Tablet Am oxicillin/Clavulanate Potassium 06/27/2020 12:00:00 AM EDT ORAL completed MED[facility] ([facility]) Glucosamine Chondroitin Complex 03/23/2020 12:00:00 AM EST ORAL active MED[facility] ([facility]) solifenacin succinate 5 MG Oral Tablet [VESICARE] VESIcare 5 MG VESIcare 5 MG 02/11/2020 12:00:00 AM EST 1.0 {tablet} active VESIcare 5 MG eCW1 ([facility]) solifenacin succinate 5 MG Oral Tablet [VESICARE] VESIcare 5 MG VESIcare 5 MG 02/11/2020 12:00:00 AM EST 1.0 {tablet} active VESIcare 5 MG eCW1 ([facility]) solifenacin succinate 5 MG Oral Tablet [VESICARE] VESIcare 5 MG VESIcare 5 MG 02/11/2020 12:00:00 AM EST 1.0 {tablet} active VESIcare 5 MG eCW1 ([facility]) Oxybutynin chloride 5 MG Oral Tablet Oxybutynin Chlori de 5 MG Oxybutynin Chloride 5 MG 01/15/2020 12:00:00 AM EST 1.0 {tablet} active Oxybutynin Chloride 5 MG eCW1 ([facility]) Oxybutynin chloride 5 MG Oral Tablet Oxybutynin Chlori de 5 MG Oxybutynin Chloride 5 MG 01/15/2020 12:00:00 AM EST 1.0 {tablet} active Oxybutynin Chloride 5 MG eCW1 ([facility]) Oxybutynin chloride 5 MG Oral Tablet Oxybutynin Chlori de 5 MG Oxybutynin Chloride 5 MG 01/15/2020 12:00:00 AM EST 1.0 {tablet} active Oxybutynin Chloride 5 MG eCW1 ([facility]) Oxybutynin chloride 5 MG Oral Tablet Oxybutynin Chlori de 5 MG Oxybutynin Chloride 5 MG 01/15/2020 12:00:00 AM EST 1.0 {tablet} active Oxybutynin Chloride 5 MG eCW1 ([facility]) Sulfamethoxazole 800 MG / Trimethoprim 1 60 MG Oral Tablet [Bactrim] Bactrim DS 800-160 MG Bactrim DS 800-160 MG 12/03/2019 12:00:00 AM EDT 1.0 {table t} suspended Bactrim DS 800-160 MG eCW1 ( [facility]) Sulfamethoxazole 800 MG / Trimethoprim 1 60 MG Oral Tablet [Bactrim] Bactrim DS 800-160 MG Bactrim DS 800-160 MG 12/03/2019 12:00:00 AM EDT 1.0 {table t} suspended Bactrim DS 800-160 MG eCW1 ( [facility]) Sulfamethoxazole 800 MG / Trimethoprim 1 60 MG Oral Tablet [Bactrim] Bactrim DS 800-160 MG Bactrim DS 800-160 MG 12/03/2019 12:00:00 AM EDT 1.0 {table t} active Bactrim DS 800-160 MG eCW1 ( [facility]) Sulfamethoxazole 800 MG / Trimethoprim 1 60 MG Oral Tablet [Bactrim] Bactrim DS 800-160 MG Bactrim DS 800-160 MG 12/03/2019 12:00:00 AM EDT 1.0 {table t} suspended Bactrim DS 800-160 MG eCW1 ( [facility]) Sulfamethoxazole 800 MG / Trimethoprim 1 60 MG Oral Tablet [Bactrim] Bactrim DS 800-160 MG Bactrim DS 800-160 MG 12/03/2019 12:00:00 AM EDT 1.0 {table t} suspended Bactrim DS 800-160 MG eCW1 ( [facility]) Sulfamethoxazole 800 MG / Trimethoprim 1 60 MG Oral Tablet [Bactrim] Bactrim DS 800-160 MG Bactrim DS 800-160 MG 12/03/2019 12:00:00 AM EDT 1.0 {table t} suspended Bactrim DS 800-160 MG eCW1 ( [facility]) Insurance Providers Payer name Policy type / Coverage type Policy ID Covered green party ID Covered green party's relationship to villar Policy Villar Plan Information [place] [id number] Self 120 [id number] [place] Primary [id number] Self [id number] [place] Medicare Primary [id number] Self 120 [id number] [place] Primary [id number] Self [id number] [place] Primary [id number] Self 120 [id number] Medicare Medicare Primary [id number] Self Medicare [place] Primary [id number] Self 120 [id number] [place] Primary [id number] Self 120 [id number] [place] Primary [id number] Self 120 [id number] [place] Medicare Primary [id number] Self 120 [id number] [place] Primary [id number] Self [id number] [place] Primary [id number] Self 120 [id number] [place] Medicare Primary [id number] Self 120 [id number] [place] Primary [id number] Self Medicare [place] Primary [id number] Self 120 [id number] MEDICARE [id number] Pilar [id number] A MEDICARE [id number] Pilar [id number] [id number] Medicare [place] Medicare Primary [id number] Self 120 [id number] Gn[employer] Comp Trust Ins Medigap Part B [id number] Self [employer] Serv (pr) Medigap Part B 1100 Self [employer] Serv (pr) Medigap Part B [id number] Self [id number] COMMERCIAL GENERIC [id number] Pilar [id number] COMMERCIAL GENERIC [id number] Pilar [id number] [facility] [employer] [id number] Self [id number] [place] Medicare Part B [id number] Self [id number] Medicare (Part B) Medicare Primary [id number] Self 1 [id number] MEDICARE PI PI ANSI-Medicare Part B [id number] ANSI-Commercial [id number] COMMERCIAL GENERIC PI P I ANSI-Medicare Part B [id number] ANSI-Commercial [id number] Medicare (Part B) Medicare Primary [id number] Self 1 [id number] ANSI-Medicare Part B [id number] ANSI-Commercial [id number] Medicare (Part B) Medicare Primary [id number] Self 1 [id number] ANSI-Commercial [id number] ANSI-Medicare Part B [id number] Medicare (Part B) Medicare Primary [id number] Self 1 [id number] Medicare (Part B) Medicare Primary [id number] Self 1 [id number] [employer] MU-ISM [id number] SP [id number] MU-ISM COMPREHENSIVE TRUST [id number] SP [id number] Medicare (Part B) Medicare Primary [id number] Self 1 [id number] Medicare (Part B) Medicare Primary [id number] Self 1 [id number] Gnosticist Comp Trust [facility] Part B [id number] Self Medicare [place]/[facility] Medicare Primary [id number] Self Medicare (Part B) Medicare Primary [id number] Self [employer]ARS[employer]ISM [employer]OS SERVICES/HBS [id number] SP [id number] MU-ISM COMPREHENSIVE [id number] SP [id number] [facility] YARSANISM BROTHERS O [id number] S [id number] MEDICARE C [id number] S [id number] A MU-ISM COMPREHENSIVE O [id number] S [id number] MEDICARE - [facility] [id number] S [id number] [facility] Medidelmont Part B [id number] Self Y[employer] HLTH SERV [id number] SP [id number] MU-ISM COMPREHENSIVE TRUST [id number] SP [id number] A YARSANISM BROS [id number] SP [id number] MEDICARE [id number] SP [id number] SP [id number] Medicare Part B [facility] Other 0 [id number] Self 0 [employer] SERVICES [id number] SP [id number] [employer] SERVICE [id number] SP [id number] ALLIED [employer] O [id number] S [id number] MEDICARE C [id number] S [id number] MEDICARE [id number] SP [id number] A [facility] O [id number] S [id number] [facility] [id number] SP [id number] MEDICARE [id number] SP [id number] [id number] Medicare (Part B) Medicare Primary [id number] Self [id number] Medicare (Part B) Medicare Primary [id number] Self [id number] [employer] SERVICES [id number] SP [id number] ANSI-Medicare Part B [id number] ANSI-Commercial [id number] ANSI-Medicare Part B [id number] ANSI-Commercial [id number] ANSI-Commercial [id number] ANSI-Medicare Part B [id number] ANSI-Commercial [id number] ANSI-Medicare Part B [id number] Medicare (Part B) Medicare Primary [id number] Self 1 [id number] Medicare (Part B) Medicare Primary [id number] Self 1 [id number] Problems, Conditions, and Diagnoses Code Display Name Description Problem Type Effective Dates Data Source(s) 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 10/06/2020 12:00 :00 AM EDT eCW1 ([facility]) 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 [id number] Positive QuantiFERON-TB Gold test Problem 08/26/2020 12:00:00 AM EDT eCW1 ([facility]) L02.01 Cellulitis and abscess of face Cellulitis and abscess of face Problem 08/21/2020 12:00:00 AM EDT MEDENT ([facility], ) K11.3 Abscess of salivary gland Abscess of salivary gland Pr oblem 08/21/2020 12:00:00 AM EDT MEDENT ([facility], ) N40.1 Lower urinary tract symptoms due to mario gn prostatic hypertrophy Benign prostatic hyperplasia with lower urinary tract symptoms Problem 12/03/2019 12:00:00 AM EDT eCW1 ([facility]) Surgeries/Procedures Procedure Description Date Indications Data Source(s) ARTHROCENTESIS ASPIR&/INJECTION MAJOR JT/BURSA 021 12:00:00 AM EDT MEDENT ([facility]) OFFICE OUTPATIENT VISIT 15 MINUTES 12/04/2020 12:00:00 AM EDT MEDENT ([facility]) INTERROGATION 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 PM 2020 12:00:00 AM EDT MEDENT ([facility]) ECG ROUTINE ECG W/LEAST 12 LDS W/I&R 09/21/2020 12:00: 00 AM EDT MEDENT ([facility]) OFFICE OUTPATIENT VISIT 25 MINUTES 09/21/2020 12:00:00 AM EDT MEDENT ([facility]) OFFICE OUTPATIENT VISIT 10 MINUTES 08/27/2020 12:00:00 AM EDT MEDENT ([facility]) OFFICE OUTPATIENT VISIT 15 MINUTES 08/24/2020 12:00:00 AM EDT MEDENT ([facility]) OFFICE OUTPATIENT VISIT 25 MINUTES 08/21/2020 12:00:00 AM EDT MEDENT ([facility]) OFFICE OUTPATIENT VISIT 15 MINUTES 08/18/2020 12:00:00 AM EDT MEDENT ([facility]) ARTHROCENTESIS ASPIR&/INJECTION MAJOR JT/BURSA 021 12:00:00 AM EDT MEDENT ([facility]) OFFICE OUTPATIENT VISIT 15 MINUTES 06/27/2020 12:00:00 AM EDT MEDENT ([facility]) ARTHROCENTESIS ASPIR&/INJECTION MAJOR JT/BURSA 021 12:00:00 AM EDT MEDENT ([facility]) RADIOLOGIC EXAM KNEE COMPLETE 4/MORE VIEWS 06/04/2020 12:00:00 AM EDT MEDENT ([facility]) OFFICE OUTPATIENT VISIT 25 MINUTES 06/04/2020 12:00:00 AM EDT MEDENT ([facility]) RADIOLOGIC EXAM KNEE COMPLETE 4/MORE VIEWS 06/04/2020 12:00:00 AM EDT MEDENT ([facility]) INTERROGATION 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 PM 2020 12:00:00 AM EDT MEDENT ([facility]) INJECTION 1 TENDON SHEATH/LIGAMENT APONEUROSIS 021 12:00:00 AM EST MEDENT ([facility]) RADEX SHOULDER COMPLETE MINIMUM 2 VIEWS 04/13/2020 12: 00:00 AM EST MEDENT ([facility]) OFFICE OUTPATIENT VISIT 25 MINUTES 04/13/2020 12:00:00 AM EST MEDENT ([facility]) RADEX SHOULDER COMPLETE MINIMUM 2 VIEWS 04/13/2020 12: 00:00 AM EST [facility] ([facility]) RADEX SHOULDER COMPLETE MINIMUM 2 VIEWS 04/13/2020 12: 00:00 AM EST [facility] ([facility]) ECG ROUTINE ECG W/LEAST 12 LDS W/I&R 03/24/2020 12:00: 00 AM EST [facility] ([facility]) OFFICE OUTPATIENT VISIT 25 MINUTES 03/24/2020 12:00:00 AM EST [facility] ([facility]) ARTHROCENTESIS ASPIR&/INJECTION MAJOR JT/BURSA 020 12:00:00 AM EST [facility] ([facility]) uro PVR (Post Voiding Residual) Bladder Scan 0 12:00:00 AM EST eCW1 ([facility]) Medication: Lidocaine HCl 2% Jelly 5mL Intravesically 12/18/2019 12:00:00 AM EST eCW1 ([facility]) Results ID Date Data Source [id number] 10/18/2020 11:30:00 AM EDT [facility] Value Range Interpretation Code Description Data Maryse rce(s) Supporting Document(s) SARS-CoV-2 RNA Resp Ql LORENA+probe NOT DETECTED [facility] This lab was ordered by FATIMAH ortega and reported by FATIMAH Lowery. ID Date Data Source [id number] 08/28/2020 12:28:00 PM EDT [facility] ([facility]) Name Value Range Interpretation Code Description Data Maryse rce(s) Supporting Document(s) Cholesterol 146 MEDENT ([facility]) Triglycerides 94 [facility] ([facility]) Cholesterol in LDL [Mass/volume] in Serum or Plasma by calculation 81 [facility] ([facility]) HDL 46 [facility] ([facility] Chol/HDL Ratio 3.173 [facility] ([facility]) ID Date Data Source [id number] 08/28/2020 12:28:00 PM EDT [facility] ([facility]) Name Value Range Interpretation Code Description Data Maryse rce(s) Supporting Document(s) Albumin [Mass/volume] in Serum or Plasma 3.3 MED[facility] ([facility]) Carbon dioxide, total [Moles/volume] in Serum or Plasma 29 [facility] ([facility]) Alanine aminotransferase [Enzymatic activity/volume] in Serum or Pl asma 18 MED[facility] ([facility]) Calcium [Mass/volume] in Serum or Plasma 9.0 MED[facility] ([facility]) Chloride [Moles/volume] in Serum or Plasma 107 [facility] ([facility]) Alkaline phosphatase [Enzymatic activity/volume] in Serum or Plasma 5 4 [facility] ([facility]) Sodium 140 [facility] ([facility] Potassium [Moles/volume] in Serum or Plasma 4.4 [facility] ([facility]) Protein [Mass/volume] in Serum or Plasma 6.6 [facility] ([facility]) Urea nitrogen [Mass/volume] in Serum or Plasma 17 [facility] ([facility]) Aspartate aminotransferase [Enzymatic activity/volume] in Serum or Plasma 13 [facility] ([facility]) Creatinine For GFR 0.93 [facility] ([facility]) Glucose 86 83-110 [facility] ([facility]) ID Date Data Source MAGNESIUM LEVEL 03/16/2020 12:00:00 AM EST eCW1 ([facility]) Name Value Range Interpretation Code Description Data Maryse rce(s) Supporting Document(s) 2.3 1.8-2.4 MAGNESIUM LEVEL eCW1 ([facility]) ID Date Data Source Comprehensive Metabolic Profile (CMP) 03/16/2020 12:00:00 AM EST eCW1 ([facility]) Name Value Range Interpretation Code Description Data Maryse rce(s) Supporting Document(s) 0.99 0.70-1.30 CREATININE FOR GFR eCW1 ([facility]) 81 70-100 GLUCOSE, FASTING eCW1 ([facility]) 21 7-18 BLOOD UREA NITROGEN eCW1 ([facility]) > 60.0 >35 GLOMERULAR FILTRATION RATE eCW 1 ([facility]) 106 98-107 CHLORIDE LEVEL eCW1 ([facility]) 5.0 3.5-5.1 POTASSIUM SERUM eCW1 ([facility]) 141 136-145 SODIUM LEVEL eCW1 ([facility]) 30 21-32 CARBON DIOXIDE LEVEL eCW1 ([facility]) 9.2 8.8-10.2 CALCIUM LEVEL eCW1 ([facility]) 13 7-37 AST/SGOT eCW1 ([facility]) 19 12-78 ALT/SGPT eCW1 ([facility]) 0.5 0.2-1.0 BILIRUBIN,TOTAL eCW1 ([facility]) 53 45-117 ALKALINE PHOSPHATASE eCW1 ([facility]) 3.5 3.2-5.2 ALBUMIN eCW1 ([facility]) 7.0 6.4-8.2 TOTAL PROTEIN eCW1 ([facility]) 1.0 ALBUMIN/GLOBULIN RATIO eCW1 ([facility]) ID Date Data Source CBC - Complete Blood Count 03/16/2020 12:00:00 AM EST eCW1 ( [facility]) Name Value Range Interpretation Code Description Data Maryse rce(s) Supporting Document(s) 45.1 42.0-52.0 HEMATOCRIT eCW1 ([facility]) 4.71 4.30-6.10 RED BLOOD COUNT eCW1 ([facility]) 14.5 13.5-17.5 HEMOGLOBIN eCW1 ([facility]) 7.6 4.0-10.0 WHITE BLOOD COUNT eCW1 ([facility]) 95.8 80.0-96.0 MEAN CORPUSCULAR VOLUME e CW1 ([facility]) 30.8 27.0-33.0 MEAN CORPUSCULAR HEMOGLOB IN eCW1 ([facility]) 12.9 11.5-14.5 RED CELL DISTRIBUTION WID TH eCW1 ([facility]) 32.2 32.0-36.5 MEAN CORPUSCULAR HGB CONC eCW1 ([facility]) 306 150-450 PLATELET COUNT, AUTOMATED eCW1 ([facility]) Procedure Social History Code Duration Value Status Description Data Source(s ) Smoking 01/14/2021 07:22:49 PM EST Ex-smoker (finding) [facility] Ex-smoker (finding) ANIKET (Uriel Recinos [facility]) Smoking 10/06/2020 12:00:00 AM EDT Never Smoker completed Never S moker eCW1 ([facility]) Smoking 09/21/2020 12:00:00 AM EDT Patient has never smoked co mpleted Patient has never smoked [facility] ([facility]) Smoking 09/14/2020 12:00:00 AM EDT Never Smoker completed Never S moker eCW1 ([facility]) Smoking 09/14/2020 12:00:00 AM EDT Never Smoker completed Never S moker eCW1 ([facility]) Smoking 09/14/2020 12:00:00 AM EDT Never Smoker completed Never S moker eCW1 ([facility]) Smoking 08/18/2020 12:00:00 AM EDT Patient is a former smoker completed Patient is a former smoker MEDENT ([facility] [place], [facility]) Smoking 03/15/2020 12:00:00 AM EST Never Smoker completed Never S moker eCW1 ([facility]) Smoking 03/15/2020 12:00:00 AM EST Never Smoker completed Never S moker eCW1 ([facility]) Smoking 03/15/2020 12:00:00 AM EST Never Smoker completed Never S moker eCW1 ([facility]) Smoking 02/11/2020 12:00:00 AM EST Never Smoker completed Never S moker eCW1 ([facility]) Smoking 02/11/2020 12:00:00 AM EST Never Smoker completed Never S moker eCW1 ([facility]) Smoking 02/11/2020 12:00:00 AM EST Never Smoker completed Never S moker eCW1 ([facility]) Smoking 01/15/2020 12:00:00 AM EST Never Smoker completed Never S moker eCW1 ([facility]) Smoking 12/18/2019 12:00:00 AM EST Never Smoker completed Never S moker eCW1 ([facility]) Smoking 12/03/2019 12:00:00 AM EDT Never Smoker completed Never S moker eCW1 ([facility]) Vital Signs ID Date Data Source UNK Name Value Range Interpretation Code Description Data Source(s) Body weight 238 [lb_av] 238 [lb_av] eCW1 ([facility]) Body weight 107.96 kg 107.96 kg eCW1 ([facility]) Body height 73 [in_i] 73 [in_i] eCW1 ([facility]) Body mass index (BMI) [Ratio] 31.40 kg/m2 31.40 kg/m2 eCW1 ([facility]) Heart rate 74 /min 74 /min eCW1 ([facility]) Respiratory rate 16 /min 16 /min eCW1 ([facility]) Body temperature 97.8 [degF] 97.8 [degF] eCW1 ( [facility]) Systolic blood pressure 144 mm[Hg] 144 mm[Hg] e CW1 ([facility]) Diastolic blood pressure 72 mm[Hg] 72 mm[Hg] eCW1 ([facility]) Body height 74 [in_i] 74 [in_i] MEDSTEFF ([facility] 6'2" Body weight 240.00 [lb_av] 240.00 [lb_av] MEDEN T ([facility]) Respiratory rate 16 /min 16 /min MEDENT ( [facility]) Body mass index (BMI) [Ratio] 30.8 kg/m2 30.8 k g/m2 MED[facility] ([facility]) Heart rate 76 /min 76 /min [facility] ([facility]) Regular Systolic blood pressure 132 mm[Hg] 132 mm[Hg] M EDENT ([facility]) sitting, regular cuff Diastolic blood pressure 74 mm[Hg] 74 mm[Hg] MEDENT ([facility]) sitting, regular cuff Systolic blood pressure 128 mm[Hg] 128 mm[Hg] M EDENT ([facility]) sitting Diastolic blood pressure 74 mm[Hg] 74 mm[Hg] MEDENT ([facility]) sitting Body weight 240.4 [lb_av] 240.4 [lb_av] eCW1 ([facility]) Body height 73 [in_i] 73 [in_i] eCW1 ([facility]) Body mass index (BMI) [Ratio] 31.71 kg/m2 31.71 kg/m2 eCW1 ([facility]) Heart rate 55 /min 55 /min eCW1 ([facility]) Respiratory rate 18 /min 18 /min eCW1 ([facility]) Body temperature 97.5 [degF] 97.5 [degF] eCW1 ( [facility]) Systolic blood pressure 136 mm[Hg] 136 mm[Hg] e CW1 ([facility]) Diastolic blood pressure 70 mm[Hg] 70 mm[Hg] eCW1 ([facility]) Body height 74 [in_i] 74 [in_i] MEDENT ([facility], ) 6'2" Body weight 240.00 [lb_av] 240.00 [lb_av] MEDEN T ([facility], ) Body mass index (BMI) [Ratio] 30.8 kg/m2 30.8 k g/m2 MEDENT ([facility] [place] body weight 190 [lb_av] 190 [lb_av] MEDEN T ([facility]) Body weight 108.864 kg 108.864 kg MEDENT ([facility]) Body surface area Derived from formula 2.35 m2 2.35 m2 MEDENT ([facility]) Body height 74 [in_i] 74 [in_i] MEDENT ([facility]) 6'2" Body weight 240.00 [lb_av] 240.00 [lb_av] MEDEN T ([facility]) Body mass index (BMI) [Ratio] 30.8 kg/m2 30.8 k g/m2 [facility] [place] body weight 190 [lb_av] 190 [lb_av] MEDEN T ([facility]) Body weight 108.864 kg 108.864 kg MEDENT ([facility]) Body surface area Derived from formula 2.35 m2 2.35 m2 [facility] ([facility]) Body height 74 [in_i] 74 [in_i] MEDENT ([facility]) 6'2" Body weight 240.00 [lb_av] 240.00 [lb_av] MEDEN T ([facility]) Body mass index (BMI) [Ratio] 30.8 kg/m2 30.8 k g/m2 [facility] [place] body weight 190 [lb_av] 190 [lb_av] MEDEN T ([facility]) Body weight 108.864 kg 108.864 kg MEDENT ([facility]) Body surface area Derived from formula 2.35 m2 2.35 m2 [facility] Body weight 107.957 kg 107.957 kg MEDENT ([facility]) Body surface area Derived from formula 2.34 m2 2.34 m2 [facility] ([facility]) Systolic blood pressure 140 mm[Hg] 140 mm[Hg] M EDENT ([facility]) Diastolic blood pressure 80 mm[Hg] 80 mm[Hg] [facility] ([facility]) Heart rate 70 /min 70 /min [facility] ([facility]) Oxygen saturation in Arterial blood by Pulse oximetry 99 % 99 % [facility] ([facility]) Body height 74 [in_i] 74 [in_i] [facility] ([facility]) 6'2" Body weight 238.00 [lb_av] 238.00 [lb_av] MEDEN T ([facility]) Body mass index (BMI) [Ratio] 30.6 kg/m2 30.6 k g/m2 [facility] ([facility]) [place] body weight 190 [lb_av] 190 [lb_av] MEDEN T ([facility]) Systolic blood pressure 156 mm[Hg] 156 mm[Hg] [facility] ([facility] [place], [facility]) Heart rate 67 /min 67 /min [facility] ([facility], [facility]) Respiratory rate 18 /min 18 /min [facility] ( [facility] [place], [facility]) Oxygen saturation in Arterial blood by Pulse oximetry 97 % 97 % [facility] ([facility], [facility]) Body temperature 98.1 [degF] 98.1 [degF] [facility] ([facility], [facility]) Body weight 228.00 [lb_av] 228.00 [lb_av] MEDEN T ([facility], [facility]) Body height 74 [in_i] 74 [in_i] [facility] ([facility], [facility]) 6'2" Body mass index (BMI) [Ratio] 29.3 kg/m2 29.3 k g/m2 [facility] ([facility], [facility]) Diastolic blood pressure 70 mm[Hg] 70 mm[Hg] [facility] ([facility], [facility]) Systolic blood pressure 171 mm[Hg] 171 mm[Hg] [facility] ([facility] [place], [facility]) Diastolic blood pressure 79 mm[Hg] 79 mm[Hg] MEDENT ([facility] [place], [facility]) Heart rate 71 /min 71 /min [facility] ([facility] [place], [facility]) Respiratory rate 16 /min 16 /min MEDENT ( [facility], [facility]) Oxygen saturation in Arterial blood by Pulse oximetry 96 % 96 % MEDENT ([facility], [facility]) Body temperature 96.9 [degF] 96.9 [degF] MEDENT ([facility]) Body weight 228.00 [lb_av] 228.00 [lb_av] MEDEN T ([facility]) Body height 74 [in_i] 74 [in_i] MEDENT ([facility]) 6'2" Body mass index (BMI) [Ratio] 29.3 kg/m2 29.3 k g/m2 MEDENT ([facility]) Body mass index (BMI) [Ratio] 30.9 kg/m2 30.9 k g/m2 MEDENT ([facility] ) Body temperature 97.5 [degF] 97.5 [degF] MEDENT ([facility] ) Body height 73 [in_i] 73 [in_i] MEDENT ([facility] ) 6'1" Body weight 234.12 [lb_av] 234.12 [lb_av] MEDEN T ([facility] ) Heart rate 72 /min 72 /min [facility] ([facility]) Regular Respiratory rate 16 /min 16 /min MED[facility] ( [facility]) Body mass index (BMI) [Ratio] 30.6 kg/m2 30.6 k g/m2 [facility] ([facility]) Systolic blood pressure 126 mm[Hg] 126 mm[Hg] M EDENT ([facility]) sitting, regular cuff Diastolic blood pressure 74 mm[Hg] 74 mm[Hg] MED[facility] ([facility]) sitting, regular cuff Systolic blood pressure 126 mm[Hg] 126 mm[Hg] M EDENT ([facility]) sitting Diastolic blood pressure 70 mm[Hg] 70 mm[Hg] [facility] ([facility]) sitting Body weight 238.00 [lb_av] 238.00 [lb_av] MEDEN T ([facility]) Body height 74 [in_i] 74 [in_i] [facility] [place] 6'2" Body weight 240.6 [lb_av] 240.6 [lb_av] eCW1 ([facility]) Body height 73 [in_i] 73 [in_i] eCW1 ([facility]) Body mass index (BMI) [Ratio] 31.74 kg/m2 31.74 kg/m2 eCW1 ([facility]) Heart rate 66 /min 66 /min eCW1 ([facility]) Respiratory rate 18 /min 18 /min eCW1 ([facility]) Body temperature 97.7 [degF] 97.7 [degF] eCW1 ( [facility]) Systolic blood pressure 132 mm[Hg] 132 mm[Hg] e CW1 ([facility]) Diastolic blood pressure 70 mm[Hg] 70 mm[Hg] eCW1 ([facility]) Body height 73 [in_i] 73 [in_i] eCW1 ([facility]) Body mass index (BMI) [Ratio] 31.00 kg/m2 31.00 kg/m2 eCW1 ([facility]) Heart rate 69 /min 69 /min eCW1 ([facility]) Respiratory rate 18 /min 18 /min eCW1 ([facility]) Body temperature 96.6 [degF] 96.6 [degF] eCW1 ( [facility]) Systolic blood pressure 142 mm[Hg] 142 mm[Hg] e CW1 ([facility]) Diastolic blood pressure 78 mm[Hg] 78 mm[Hg] eCW1 ([facility]) Body weight 235 [lb_av] 235 [lb_av] eCW1 ([facility]) Body weight 237 [lb_av] 237 [lb_av] eCW1 ([facility]) Body height 73 [in_i] 73 [in_i] eCW1 ([facility]) Body mass index (BMI) [Ratio] 31.26 kg/m2 31.26 kg/m2 eCW1 ([facility]) Heart rate 74 /min 74 /min eCW1 ([facility]) Respiratory rate 18 /min 18 /min eCW1 ([facility]) Body temperature 97.2 [degF] 97.2 [degF] eCW1 ( [facility]) Systolic blood pressure 142 mm[Hg] 142 mm[Hg] e CW1 ([facility]) Diastolic blood pressure 72 mm[Hg] 72 mm[Hg] eCW1 ([facility]) Body weight 236 [lb_av] 236 [lb_av] eCW1 ([facility]) Body height 73 [in_i] 73 [in_i] eCW1 ([facility]) Body mass index (BMI) [Ratio] 31.13 kg/m2 31.13 kg/m2 eCW1 ([facility]) Heart rate 78 /min 78 /min eCW1 ([facility]) Respiratory rate 18 /min 18 /min eCW1 ([facility]) Body temperature 96.7 [degF] 96.7 [degF] eCW1 ( [facility]) Systolic blood pressure 132 mm[Hg] 132 mm[Hg] e CW1 ([facility]) Diastolic blood pressure mm[Hg] eCW1 ([facility]) Heart rate 55 /min 55 /min eCW1 ([facility]) Body weight 238 [lb_av] 238 [lb_av] eCW1 ([facility]) Body mass index (BMI) [Ratio] 31.40 kg/m2 31.40 kg/m2 eCW1 ([facility]) Body temperature 97.8 [degF] 97.8 [degF] eCW1 ( [facility]) Respiratory rate 18 /min 18 /min eCW1 ([facility]) Diastolic blood pressure 76 mm[Hg] 76 mm[Hg] eCW1 ([facility]) Body height 73 [in_i] 73 [in_i] eCW1 ([facility]) Systolic blood pressure 150 mm[Hg] 150 mm[Hg] e CW1 ([facility]) Patient Treatment Plan of Care Planned Activity Planned Date Details Description Data Source (s) Miconazole Nitrate 20 MG/ML Topical Cream 09/14/2020 12:00:00 AM ED T eCW1 ([facility]) Miconazole Nitrate 20 MG/ML Topical Cream 09/14/2020 12:00:00 AM ED T eCW1 ([facility]) Miconazole Nitrate 20 MG/ML Topical Cream 09/14/2020 12:00:00 AM ED T eCW1 ([facility]) solifenacin succinate 5 MG Oral Tablet [[facility]] 02/11/2020 12: 00:00 AM EST eCW1 ([facility]) solifenacin succinate 5 MG Oral Tablet [[facility]] 02/11/2020 12: 00:00 AM EST eCW1 ([facility]) solifenacin succinate 5 MG Oral Tablet [[facility]] 02/11/2020 12: 00:00 AM EST eCW1 ([facility]) Oxybutynin chloride 5 MG Oral Tablet 01/15/2020 12:00:00 AM EST eCW1 ([facility]) Sulfamethoxazole 800 MG / Trimethoprim 160 MG Oral Tab let [Bactrim] 12/03/2019 12:00:00 AM EDT eCW1 ([facility])
[2021-01-17 17:00] LABS: BASO % 0.7 % (0.0-1.0); EOS # 0.2 10^3/uL (0.0-0.5); EOS % 2.8 % (0.0-3.0); HEMATOCRIT 43.3 % (42.0-52.0); LYMPH # 1.2 10^3/uL (1.5-5.0); LYMPH % 20.5 % (24.0-44.0); MEAN CORPUSCULAR HEMOGLOBIN 30.2 pg (27.0-33.0); MEAN CORPUSCULAR HGB CONC 32.3 g/dl (32.0-36.5); MEAN CORPUSCULAR VOLUME 93.3 fl (80.0-96.0); MONO # 0.6 10^3/uL (0.0-0.8); MONO % 10.8 % (2.0-8.0); NEUTROPHILS # 3.7 10^3/uL (1.5-8.5); NEUTROPHILS % 64.7 % (36.0-66.0); PLATELET COUNT, AUTOMATED 229 10^3/uL (150-450); RED BLOOD COUNT 4.64 10^6/uL (4.30-6.10); WHITE BLOOD COUNT 5.7 10^3/uL (4.0-10.0)
--- NOTE | 2021-01-17 17:08 | REP ---
INDICATION: right LE swelling ?abscess vs hematoma. Patient is anticoagulated. COMPARISON: None. TECHNIQUE: Multiple ultrasound images of the area of interest in the lateral calf were obtained. FINDINGS: In the area of the palpable abnormality on the lateral aspect of the distal calf, there is a complex fluid collection measuring 2.5 x 2.4 x 1.3 cm, consistent with a hematoma in this patient on anti coagulation. There is surrounding edema. IMPRESSION: A complex fluid collection right lateral calf consistent with a hematoma. <Electronically signed by Donta Whitehead > 01/17/21 [id number]
[2021-01-17 17:23] LABS: CALCIUM LEVEL 8.4 MG/DL (8.8-10.2); CREATININE FOR GFR 1.38 MG/DL (0.70-1.30); GLOMERULAR FILTRATION RATE 51.9 (>35)
[2021-01-17 17:40] LABS: INR 1.72; PROTHROMBIN TIME 20.6 SECONDS (12.7-14.5)
[2021-01-17 17:41] LABS: PARTIAL THROMBOPLASTIN TIME 40.5 SECONDS (25.9-37.0)
[2021-01-17 17:58] VITALS: BP 143/82
[2021-01-17] MEDS ORDERED: DOXY-443 PO (18:12)
[2021-01-17] MEDS ORDERED: DOXYCYCLINE HYCLATE 100MG TABLET PO ONE ×2 (18:15→18:35)
== END 2021-01-17 18:38 | disposition home or self-care (01) ==
LOC: M ED 13:20
DX: S80.11XA Contusion of right lower leg, initial encounter (principal); L03.115 Cellulitis of right lower limb; X58.XXXA Exposure to other specified factors, initial encounter; Y92.89 Other specified places as the place of occurrence of the external cause; I48.91 Unspecified atrial fibrillation; Z79.899 Other long term (current) drug therapy; Z79.01 Long term (current) use of anticoagulants

== ENCOUNTER → 2021-06-02 | Outpatient (CLI) | payer MEDICARE, OTHER ==
[~2021-06-02] MED LIST changes: -AMIO200T3; +AMIO200T49; +AMOX500T2 PO; +DOXY-443 PO; +ISOVUE-300 61% 50ML VIAL As Ordered ONE; +LIDOCAINE 1% MDV 20ML VIAL As Ordered ONE; -MOME50SP; +NASO50SP3; +methylPREDNISolone SUSP 40MG/ML 1ML VIAL (DEPO MEDROL) As Ordered ONE
== END ==
LOC: M RADPRO 13:06
PROVIDERS: ATTEND Physician Assistant
DX: M19.011 Primary osteoarthritis, right shoulder (principal)
CPT/HCPCS: 20610; 77002; J1030; Q9967

== ENCOUNTER → 2021-06-09 | Outpatient (CLI) | payer MEDICARE, OTHER | LOC: M RADPRO 15:30 | PROVIDERS: ATTEND Physician Assistant | DX: M19.012 Primary osteoarthritis, left shoulder (principal) | CPT/HCPCS: 20610; 77002; J1030; Q9967 ==

== ENCOUNTER → 2021-06-22 | Outpatient (CLI) | payer MEDICARE, OTHER ==
[~2021-06-22] MED LIST changes: -ISOVUE-300 61% 50ML VIAL As Ordered ONE; -LIDOCAINE 1% MDV 20ML VIAL As Ordered ONE; -methylPREDNISolone SUSP 40MG/ML 1ML VIAL (DEPO MEDROL) As Ordered ONE
[2021-06-22 10:52] LABS: ALBUMIN 2.9 GM/DL (3.2-5.2); BLOOD UREA NITROGEN 18 MG/DL (7-18); CALCIUM LEVEL 8.2 MG/DL (8.8-10.2); CARBON DIOXIDE LEVEL 26 MEQ/L (21-32); CHLORIDE LEVEL 109 MEQ/L (98-107); CREATININE FOR GFR 0.86 MG/DL (0.70-1.30); GLOMERULAR FILTRATION RATE > 60.0 (>35); GLUCOSE, FASTING 67 MG/DL (70-100); PHOSPHORUS LEVEL 2.7 MG/DL (2.5-4.9); SODIUM LEVEL 140 MEQ/L (136-145)
== END ==
LOC: M WUC 08:49
PROVIDERS: ATTEND Internal Medicine
DX: U07.1 COVID-19 (principal)

== ENCOUNTER → 2021-08-31 | Outpatient (REF) | payer MEDICARE, OTHER ==
[~2021-08-31] MED LIST changes: +ATEN50TA2 PO; +[UNRECOGNIZED DRUG - CODE] PO
[2021-08-31 15:52] LABS: BASO # 0.1 10^3/uL (0.0-0.2); BASO % 0.8 % (0.0-1.0); EOS # 0.1 10^3/uL (0.0-0.5); EOS % 1.3 % (0.0-3.0); HEMATOCRIT 38.3 % (42.0-52.0); HEMOGLOBIN 12.5 g/dl (13.5-17.5); LYMPH % 13.2 % (24.0-44.0); MEAN CORPUSCULAR HGB CONC 32.6 g/dl (32.0-36.5); MEAN CORPUSCULAR VOLUME 92.1 fl (80.0-96.0); MONO # 0.9 10^3/uL (0.0-0.8); MONO % 11.8 % (2.0-8.0); NEUTROPHILS # 5.7 10^3/uL (1.5-8.5); NEUTROPHILS % 72.5 % (36.0-66.0); PLATELET COUNT, AUTOMATED 328 10^3/uL (150-450); RED BLOOD COUNT 4.16 10^6/uL (4.30-6.10); WHITE BLOOD COUNT 7.8 10^3/uL (4.0-10.0)
[2021-08-31 16:43] LABS: ALBUMIN 3.2 GM/DL (3.2-5.2); ALT/SGPT 23 U/L (12-78); BILIRUBIN,TOTAL 0.9 MG/DL (0.2-1.0); BLOOD UREA NITROGEN 18 MG/DL (7-18); CALCIUM LEVEL 8.5 MG/DL (8.8-10.2); CARBON DIOXIDE LEVEL 27 MEQ/L (21-32); CHLORIDE LEVEL 104 MEQ/L (98-107); CHOLESTEROL LEVEL 127 MG/DL (<200); CHOLESTEROL RISK RATIO 2.702 (<5); CREATININE FOR GFR 0.94 MG/DL (0.70-1.30); GLOMERULAR FILTRATION RATE > 60.0 (>35); GLUCOSE, FASTING 101 MG/DL (70-100); HDL CHOLESTEROL 47 MG/DL (>40); LDL CHOLESTEROL 65 MG/DL (<100); NON-HDL-C 80 MG/DL; POTASSIUM SERUM 4.1 MEQ/L (3.5-5.1); SODIUM LEVEL 136 MEQ/L (136-145); TOTAL PROTEIN 6.4 GM/DL (6.4-8.2); TRIGLYCERIDES LEVEL 73 MG/DL (<150)
== END ==
LOC: M SFHCCAPE 09:38
PROVIDERS: ATTEND Internal Medicine
DX: R94.5 Abnormal results of liver function studies (principal); I25.84 Coronary atherosclerosis due to calcified coronary lesion; R53.82 Chronic fatigue, unspecified; Z86.010 Personal history of colon polyps

== ENCOUNTER 2021-09-03 18:49 | Emergency (ER) | payer MEDICARE, OTHER ==
[~2021-09-03] VITALS: Ht 188 cm; Wt 104.5 kg
[~2021-09-03 18:49] MED LIST changes: -ATEN50TA2 PO; -[UNRECOGNIZED DRUG - CODE] PO
[2021-09-03 19:29] LABS: BASO # 0.1 10^3/uL (0.0-0.2); BASO % 0.8 % (0.0-1.0); EOS # 0.1 10^3/uL (0.0-0.5); EOS % 2.1 % (0.0-3.0); HEMATOCRIT 37.4 % (42.0-52.0); HEMOGLOBIN 12.4 g/dl (13.5-17.5); LYMPH # 1.4 10^3/uL (1.5-5.0); LYMPH % 21.6 % (24.0-44.0); MEAN CORPUSCULAR HEMOGLOBIN 30.3 pg (27.0-33.0); MEAN CORPUSCULAR HGB CONC 33.2 g/dl (32.0-36.5); MEAN CORPUSCULAR VOLUME 91.4 fl (80.0-96.0); MONO # 0.7 10^3/uL (0.0-0.8); MONO % 11.1 % (2.0-8.0); NEUTROPHILS % 63.9 % (36.0-66.0); PLATELET COUNT, AUTOMATED 314 10^3/uL (150-450); RED BLOOD COUNT 4.09 10^6/uL (4.30-6.10); WHITE BLOOD COUNT 6.3 10^3/uL (4.0-10.0)
[2021-09-03] MEDS ORDERED: ADENOSINE 6MG/2ML INJECTION (J0153) As Ordered ONE ×2 (19:39→19:46)
[2021-09-03] MEDS ORDERED: atenoloL 50 MG TAB PO ONE (19:55)
[2021-09-03] MEDS ORDERED: DIGOXIN INJ 0.5 MG/2 ML AMP (J1160) IV STA (19:55)
[2021-09-03 19:56] LABS: BLOOD UREA NITROGEN 21 MG/DL (7-18); CALCIUM LEVEL 8.8 MG/DL (8.8-10.2); CARBON DIOXIDE LEVEL 24 MEQ/L (21-32); CHLORIDE LEVEL 109 MEQ/L (98-107); CREATININE FOR GFR 1.15 MG/DL (0.70-1.30); GLOMERULAR FILTRATION RATE > 60.0 (>35); GLUCOSE, FASTING 97 MG/DL (70-100); MAGNESIUM LEVEL 2.3 MG/DL (1.8-2.4); POTASSIUM SERUM 4.3 MEQ/L (3.5-5.1); SODIUM LEVEL 139 MEQ/L (136-145)
[2021-09-03] MEDS ORDERED: DIGOXIN INJ 0.5 MG/2 ML AMP (J1160) As Ordered ONE (19:57)
[2021-09-03 20:11] VITALS: BP 154/80
[2021-09-03] MEDS ORDERED: ADENOSINE 6MG/2ML INJECTION (J0153) IV STA ×2 (20:17)
[2021-09-03 20:19] LABS: CK-MB VALUE MASS 4.8 NG/ML (<3.6); MB/CK RELATIVE INDEX 2.3 (< OR =4)
[2021-09-03] MEDS ORDERED: [UNRECOGNIZED DRUG - CODE] PO (22:14)
[2021-09-03] MEDS ORDERED: ATEN50TA2 PO (22:14)
[2021-09-03 22:15] VITALS: BP 128/67
== END 2021-09-03 22:25 | disposition home or self-care (01) ==
LOC: M ED 18:49
DX: I48.91 Unspecified atrial fibrillation (principal); N40.0 Benign prostatic hyperplasia without lower urinary tract symptoms; Z95.0 Presence of cardiac pacemaker; Z79.01 Long term (current) use of anticoagulants; Z79.899 Other long term (current) drug therapy
CPT/HCPCS: 71045; 80048; 82550; 82553; 83735; 84484; 85025; 93005; 96360; 96361; 96374; 96376; 99284; J0153; J1160

== ENCOUNTER → 2021-11-10 | Outpatient (REF) | payer MEDICARE, OTHER ==
[~2021-11-10] MED LIST changes: +ATEN50TA2 PO; +[UNRECOGNIZED DRUG - CODE] PO
[2021-11-10 17:27] LABS: HEMATOCRIT 36.7 % (42.0-52.0); HEMOGLOBIN 11.4 g/dl (13.5-17.5); MEAN CORPUSCULAR HEMOGLOBIN 28.6 pg (27.0-33.0); MEAN CORPUSCULAR HGB CONC 31.1 g/dl (32.0-36.5); PLATELET COUNT, AUTOMATED 385 10^3/uL (150-450); RED BLOOD COUNT 3.99 10^6/uL (4.30-6.10); WHITE BLOOD COUNT 9.3 10^3/uL (4.0-10.0)
[2021-11-10 18:25] LABS: BLOOD UREA NITROGEN 16 MG/DL (7-18); CALCIUM LEVEL 8.6 MG/DL (8.8-10.2); CARBON DIOXIDE LEVEL 27 MEQ/L (21-32); CHLORIDE LEVEL 106 MEQ/L (98-107); CREATININE FOR GFR 0.85 MG/DL (0.70-1.30); GLOMERULAR FILTRATION RATE > 60.0 (>35); GLUCOSE, FASTING 168 MG/DL (70-100); POTASSIUM SERUM 4.2 MEQ/L (3.5-5.1); SODIUM LEVEL 140 MEQ/L (136-145)
== END ==
LOC: M LABDRWCV 17:06
PROVIDERS: ATTEND Physician Assistant
DX: R53.82 Chronic fatigue, unspecified (principal)

== ENCOUNTER → 2021-11-29 | Outpatient (REF) | payer MEDICARE, OTHER ==
[2021-11-29 18:13] LABS: HEMATOCRIT 35.7 % (42.0-52.0); HEMOGLOBIN 10.7 g/dl (13.5-17.5); MEAN CORPUSCULAR VOLUME 90.2 fl (80.0-96.0); PLATELET COUNT, AUTOMATED 432 10^3/uL (150-450); RED BLOOD COUNT 3.96 10^6/uL (4.30-6.10); WHITE BLOOD COUNT 8.4 10^3/uL (4.0-10.0)
[2021-11-29 19:00] LABS: PERCENT SATURATION 10.7 % (19.7-50.0)
== END ==
LOC: M SFHCPLAZ 10:43
PROVIDERS: ATTEND Internal Medicine Hematology
DX: D50.0 Iron deficiency anemia secondary to blood loss (chronic) (principal)

== ENCOUNTER 2021-12-02 14:15 | Outpatient (CLI) | payer MEDICARE, OTHER ==
[~2021-12-02] VITALS: Ht 185.4 cm; Wt 104.0 kg
[~2021-12-02 14:15] MED LIST changes: +ALBUTEROL SULFATE 2.5 MG/0.5 ML INH NEB SOLN INH PRN; +EPINEPHrine INJ 1 MG/ML 1ML AMP IM PRN; +diphenhydrAMINE 50MG/ML VIAL (J1200) IV PRN; +methylPREDNISolone 125MG 2ML VIAL IV PRN
[2021-12-02 14:20] VITALS: BP 135/59
[2021-12-02] MEDS ORDERED: NS 1,000 ML IV SCH (14:30)
[2021-12-02] MEDS ORDERED: FERRIC CARBOXYMALTOSE INJ 750 MG in NS 250 ML (>50kg) IV ONE ×3 (14:30)
[2021-12-02 16:00] VITALS: BP 159/73
== END 2021-12-02 16:15 | disposition home or self-care (01) ==
LOC: M INFU 14:15
PROVIDERS: ATTEND Internal Medicine Hematology
DX: D50.9 Iron deficiency anemia, unspecified (principal)
CPT/HCPCS: 96365; J1439

== ENCOUNTER → 2022-07-14 | Outpatient (CLI) | payer MEDICARE ==
[~2022-07-14] MED LIST changes: -ALBUTEROL SULFATE 2.5 MG/0.5 ML INH NEB SOLN INH PRN; -EPINEPHrine INJ 1 MG/ML 1ML AMP IM PRN; -diphenhydrAMINE 50MG/ML VIAL (J1200) IV PRN; -methylPREDNISolone 125MG 2ML VIAL IV PRN
[2022-07-14 16:35] LABS: BASO % 0.6 % (0.0-1.0); EOS # 0.3 10^3/uL (0.0-0.5); HEMOGLOBIN 11.7 g/dl (13.5-17.5); LYMPH # 1.3 10^3/uL (1.5-5.0); LYMPH % 20.3 % (24.0-44.0); MEAN CORPUSCULAR HEMOGLOBIN 27.5 pg (27.0-33.0); MEAN CORPUSCULAR HGB CONC 30.8 g/dl (32.0-36.5); MEAN CORPUSCULAR VOLUME 89.4 fl (80.0-96.0); MONO # 0.7 10^3/uL (0.0-0.8); MONO % 11.1 % (2.0-8.0); NEUTROPHILS % 63.5 % (36.0-66.0); PLATELET COUNT, AUTOMATED 291 10^3/uL (150-450); RED BLOOD COUNT 4.25 10^6/uL (4.30-6.10); WHITE BLOOD COUNT 6.3 10^3/uL (4.0-10.0)
[2022-07-14 16:51] LABS: BLOOD UREA NITROGEN 23 MG/DL (9-23); CALCIUM LEVEL 8.2 MG/DL (8.3-10.6); CARBON DIOXIDE LEVEL 26 MMOL/L (20-31); CHLORIDE LEVEL 108 MMOL/L (98-107); CREATININE FOR GFR 0.96 MG/DL (0.70-1.30); DIGOXIN LEVEL 0.8 NG/ML (0.8-2.0); GLOMERULAR FILTRATION RATE > 60.0 (>35); GLUCOSE, FASTING 135 MG/DL (74-106); IRON (FE) 31 UG/DL (65-175); POTASSIUM SERUM 4.3 MMOL/L (3.5-5.1); SODIUM LEVEL 140 MMOL/L (136-145); TOTAL IRON BINDING CAPACITY 239 UG/DL (250-425)
[2022-07-14 16:54] LABS: FERRITIN 200.8 NG/ML (10.5-307.3)
== END ==
LOC: M WUC 14:25
PROVIDERS: ATTEND Internal Medicine Hematology
DX: I48.20 Chronic atrial fibrillation, unspecified (principal)

== ENCOUNTER → 2022-07-26 | Outpatient (CLI) | payer MEDICARE ==
[~2022-07-26] VITALS: Ht 185.4 cm; Wt 102.5 kg
[~2022-07-26] MED LIST changes: +EPINEPHrine INJ 1 MG/ML 1ML AMP IM PRN; +FERRIC CARBOXYMALTOSE INJ 750 MG in NS 250 ML (>50kg) IV ONE; +NS 1,000 ML IV SCH; +diphenhydrAMINE 50MG/ML VIAL IV PRN; +methylPREDNISolone 125MG 2ML VIAL IV PRN
[2022-07-26 13:15] VITALS: BP 138/66; O2SAT 97
[2022-07-26 14:38] VITALS: BP 146/6; O2SAT 97
== END ==
LOC: M INFU 13:07
PROVIDERS: ATTEND Internal Medicine Hematology
DX: D50.9 Iron deficiency anemia, unspecified (principal)
CPT/HCPCS: 96365; J1439

== ENCOUNTER 2022-08-04 11:00 | Outpatient (CLI) | payer MEDICARE ==
[~2022-08-04] VITALS: Ht 188 cm; Wt 102.5 kg
[~2022-08-04 11:00] MED LIST changes: +ALBUTEROL SULFATE 2.5MG/0.5ML INH NEB SOLN INH PRN
[2022-08-04 11:08] VITALS: BP 140/88; O2SAT 98
[2022-08-04 12:15] VITALS: BP 157/74; O2SAT 99
== END 2022-08-04 12:15 ==
LOC: M INFU 11:00
PROVIDERS: ATTEND Internal Medicine Hematology
DX: D50.9 Iron deficiency anemia, unspecified (principal)
CPT/HCPCS: 96365; J1439